=== PATIENT | male | born 1970 | race Asian ===

== ENCOUNTER 2016-10-08 09:08 | Emergency (ER) | payer OTHER ==
[2016-10-08 09:15] VITALS: BP 146/90
--- NOTE | 2016-10-08 09:30 | ED Physician Documentation ---
PD HPI LOWER EXT INJURY - Stated complaint Stated Complaint: LT LEG PX - Chief complaint Chief Complaint: Ext Problem - History obtained from History obtained from: Patient - History of Present Illness PD HPI LOW EXT INJURY LOCATION: Left, Lower leg Type of injury: Fall (slid into base while playing baseball and has abrasion lateral lower leg. injury 4 days ago, with redness and some scabbing. He has noted some swelling of lower leg and ankle below the injury now and is concerned. No purulence/drainage.) Where injury occurred: [place] - onset: How many days ago (4) Worsened by: Palpating Associated symptoms: No: Weakness, Numbness Review of Systems Constitutional: denies: Fever, Chills Neurologic: denies: Focal weakness, Numbness PD PAST MEDICAL HISTORY - Past Medical History Past Medical History: No : Kidney stones - Past Surgical History General: Cholecystectomy - Present Medications Home Medications: Ambulatory Orders Medication Instructions Recorded Confirmed Cephalexin [Keflex] 500 mg PO TID #20 capsule 10/08/16 - Allergies Allergies/Adverse Reactions: Allergies Allergy/AdvReac Type Severity Reaction Status Date / Time No Known Drug Allergies Allergy Verified 10/08/16 09:12 - Social History Does the pt smoke?: No Smoking Status: Never smoker Does the pt drink ETOH?: Yes Does the pt have substance abuse?: No - Immunizations Immunizations are current?: Yes PD ED PE NORMAL - Vitals Vital signs reviewed: Yes - General General: Alert and oriented X 3, No acute distress, Well developed/nourished - Derm Derm: Normal color, Warm and dry - Extremities Extremities: Other (left lateral lower leg with large superficial abrasion with some scabbing, no purulence. Mild surrounding redness demarcated well at edges. Some swelling of skin around the area and distal to it laterally lower leg and ankle. Faint bruising color. No calf tenderness. Bedside U/S showing spot check of veins with good flow and compressibility. ) - Neuro Neuro: No motor deficit, No sensory deficit Results - Vitals Vitals: Vital Signs - 24 hr 10/08/16 09:10 Temperature 36.5 C Heart Rate 86 Respiratory 18 Rate Blood Pressure 146/90 H O2 Saturation 99 Oxygen O2 Source Room air PD MEDICAL DECISION MAKING - ED course Complexity details: considered differential (the ankle swelling appears to be gravity effect of swelling from around the injury. No signs of DVT by exam. Not appearing infected at this point. ), d/w patient Departure - Departure Disposition: 01 Home, Self Care Clinical Impression: Swelling of lower limb Lower leg abrasion Qualifiers: Encounter type: initial encounter Laterality: left Qualified Code(s): S80.812A - Abrasion, left lower leg, initial encounter Condition: Stable Record reviewed to determine appropriate education?: Yes Instructions: ED Abrasion Follow-Up: Ruddy Peña MD [Primary Care Provider] - Prescriptions: Cephalexin [Keflex] 500 mg PO TID #20 capsule Comments: There is low suspicion for blood clots. The swelling is most likely a gravity effect from some of the swelling around the injury. Doubt early infection, but if it were to have increasing redness, streaks, purulence, then you would want to start the oral antibiotic. Otherwise continue to cleanse the abrasion and use light bit of ointment daily. For the muscle stiffness/soreness, try some Ibuprofen 400-600 mg or Naproxen 440 mg twice daily for the next 4-5 days. Gm wrap, elevate the lower leg as needed to help the swelling. Normal activity/ walking is okay. Discharge Date/Time: 10/08/16 10:05
== END 2016-10-08 10:05 | disposition home or self-care (01) ==
LOC: ED 09:08
DX: S80.812A Abrasion, left lower leg, initial encounter (principal); W22.8XXA Striking against or struck by other objects, initial encounter; Y93.64 Activity, baseball; Y92.320 Baseball field as the place of occurrence of the external cause; R22.42 Localized swelling, mass and lump, left lower limb
CPT/HCPCS: 99283

== ENCOUNTER 2017-11-25 03:18 | Emergency (ER) | payer OTHER ==
--- NOTE | 2017-11-25 03:29 | ED Physician Documentation ---
PD HPI BACK PAIN - Stated complaint Stated Complaint: LOWER BACK PAIN - Chief complaint Chief Complaint: Back Pain - History obtained from History obtained from: Patient - History of Present Illness Timing - onset: Other (episodic for few weeks, but became severe few hours ago) Timing - details: Abrupt onset, Intermittant, Waxing and waning, Still present in ED Pain level now: 8 Location: Lower, Left Quality: Pain Associated symptoms: No: Fever, Weakness, Numbness, Incontinent of urine, Unable to urinate, Hematuria, Incontinent of stool Improves with: Nothing Worsened by: Other (no exacerbating factors) Similar symptoms before: Diagnosis (similar to previous renal colic) Recently seen: Not recently seen Review of Systems Constitutional: denies: Fever Cardiac: reports: Reviewed and negative Respiratory: reports: Reviewed and negative GI: reports: Reviewed and negative. denies: Abdominal Pain, Nausea, Vomiting : denies: Dysuria, Frequency Musculoskeletal: reports: Back pain PD PAST MEDICAL HISTORY - Past Medical History Past Medical History: Yes Cardiovascular: High cholesterol : Kidney stones - Past Surgical History Past Surgical History: Yes General: Cholecystectomy - Present Medications Home Medications: Ambulatory Orders Medication Instructions Recorded Confirmed Tamsulosin [Flomax] 0.4 mg PO DAILY #10 capsule 11/25/17 oxyCODONE/ACET 5/325 [Percocet 5 1 - 2 each PO Q6H PRN #20 tablet 11/25/17 mg/325 mg] - Allergies Allergies/Adverse Reactions: Allergies Allergy/AdvReac Type Severity Reaction Status Date / Time No Known Drug Allergies Allergy Verified 11/25/17 03:24 - Social History Does the pt smoke?: No Smoking Status: Never smoker Does the pt drink ETOH?: Yes Does the pt have substance abuse?: No - Immunizations Immunizations are current?: Yes - POLST Patient has POLST: No PD ED PE NORMAL - Vitals Vital signs reviewed: Yes - General General: Alert and oriented X 3, Well developed/nourished, Other (pacing in room , appears to be in painful distress) - HEENT HEENT: Moist mucous membranes - Cardiac Cardiac: RRR, No murmur - Respiratory Respiratory: No respiratory distress, Clear bilaterally - Abdomen Abdomen: Soft, Non tender - Back Back: No CVA TTP - Derm Derm: No rash Results - Vitals Vitals: Oxygen O2 Source Room air - Labs Labs: Laboratory Tests 11/25/17 03:30 Urine Color YELLOW Urine Clarity CLEAR Urine pH 6.0 Ur Specific [place] 1.025 Urine Protein NEGATIVE Urine Glucose (UA) NEGATIVE Urine Ketones NEGATIVE Urine Occult Blood MODERATE H Urine Nitrite NEGATIVE Urine Bilirubin NEGATIVE Urine Urobilinogen 0.2 (NORMAL) Ur Leukocyte Esterase NEGATIVE Urine RBC 11-25 H Urine WBC 0-3 Ur Squamous Epith Cells RARE Squamous Urine Bacteria Rare Ur Microscopic Review INDICATED Urine Culture Comments NOT INDICATED - Rads (name of study) CT A/P Radiology: Prelim report reviewed, See rad report PD MEDICAL DECISION MAKING - ED course Complexity details: reviewed results, re-evaluated patient, considered differential, d/w patient ED course: on reevaluation after IV toradol and dilaudid, patient is resting comfortably and reports excellent pain relief. results of Cat discussed, dietary recommendations discussed, follow up and discharge plan all discussed at length. - Sepsis Event Vital Signs: Oxygen O2 Source Room air Departure - Departure Disposition: 01 Home, Self Care Clinical Impression: Renal colic on left side Condition: Good Instructions: ED Stone Renal W Colic Follow-Up: Ruddy Peña MD [Primary Care Provider] - Prescriptions: oxyCODONE/ACET 5/325 [Percocet 5 mg/325 mg] 1 - 2 each PO Q6H PRN #20 tablet PRN Reason: Pain Tamsulosin [Flomax] 0.4 mg PO DAILY #10 capsule Forms: Activity restrictions Discharge Date/Time: 11/25/17 05:37
[2017-11-25] MEDS ORDERED: HYDROmorphone 1 MG/ML CARPUJECT IM STA (03:37)
[2017-11-25] MEDS ORDERED: KETOROLAC 60 MG/2 ML VIAL IM STA (03:37)
[2017-11-25 03:39] LABS: BILIRUBIN,URINE NEGATIVE (NEGATIVE); CLARITY,URINE CLEAR (CLEAR); GLUCOSE, URINE (UA) NEGATIVE (NEGATIVE); KETONES,URINE (UA) NEGATIVE (NEGATIVE); LEUKOCYTE ESTERASE, URINE NEGATIVE (NEGATIVE); NITRITE,URINE NEGATIVE (NEGATIVE); OCCULT BLOOD,URINE MODERATE (NEGATIVE); PROTEIN,URINE NEGATIVE (NEGATIVE); UROBILINOGEN,URINE 0.2 (NORMAL) E.U./dL (NORMAL)
[2017-11-25 03:45] LABS: BACTERIA,URINE Rare /HPF (None Seen); SQUAMOUS EPITHELIAL CELL,UR RARE Squamous (<= Few)
--- NOTE | 2017-11-25 04:53 | CT Report ---
Procedure Date: 11/25/2017 Accession Number: [id number] / [id number] Procedure: CT - Abdomen/Pelvis W/O CPT Code: FULL RESULT: EXAM: CT ABDOMEN AND PELVIS (CT KUB) EXAM DATE: 11/25/2017 04:40 AM. CLINICAL HISTORY: Left flank pain. COMPARISONS: 06/04/2006. TECHNIQUE: Routine axial helical CT imaging was performed through the abdomen and pelvis without IV contrast. Reconstructions: Coronal and sagittal. In accordance with CT protocol optimization, one or more of the following dose reduction techniques were utilized for this exam: automated exposure control, adjustment of mA and/or KV based on patient size, or use of iterative reconstructive technique. FINDINGS: Lung Bases: Unremarkable. Right Kidney/Ureter: Nonobstructing calculi, measuring up to 6 mm in the lower pole. No hydronephrosis. Left Kidney/Ureter: Collecting system calculi, measuring up to 3 mm. Mild left hydronephrosis and hydroureter, with a 4 mm calculus in the distal left ureter, approximately 3 cm proximal to the left ureterovesicular junction. Other Solid Organs: Noncontrast images of the solid organs are grossly unremarkable. Gallbladder/Bile Ducts: Changes of cholecystectomy. Peritoneal Cavity: No free fluid, free air or paula adenopathy. Bowel is grossly unremarkable. Pelvic Organs: No bladder stones or wall thickening. Noncontrast images of the visualized pelvic organs are unremarkable. Vasculature: Unremarkable. Other: None. IMPRESSION: A 4 mm calculus in the distal left ureter, producing mild left hydronephrosis and proximal hydroureter. Bilateral upper tract calculi, measuring up to 3 mm on the left and 6 mm on the right. RADIA
[2017-11-25] MEDS ORDERED: oxyCODONE/ACET 5/325 Prepack 4 PO STA (05:24)
[2017-11-25] MEDS ORDERED: TAMSULOSIN 0.4 MG CAPSULE PO STA (05:24)
[2017-11-25 05:37] VITALS: BP 129/83
== END 2017-11-25 05:37 | disposition home or self-care (01) ==
LOC: ED 03:18
DX: N13.2 Hydronephrosis with renal and ureteral calculous obstruction (principal); Z87.442 Personal history of urinary calculi
CPT/HCPCS: 74176; 81001; 96372; 99283; A9270; J1170; 81003; 87086

== ENCOUNTER 2017-12-02 08:15 | Outpatient (CLI) | payer OTHER ==
[2017-12-02 12:36] LABS: BASOPHILS # (AUTO) 0.1 10^3/uL (0.0-0.1); BASOPHILS % (AUTO) 0.7 %; EOSINOPHILS # (AUTO) 0.6 10^3/uL (0.0-0.7); EOSINOPHILS % (AUTO) 6.6 %; LYMPHOCYTES # (AUTO) 2.3 10^3/uL (1.5-3.5); LYMPHOCYTES % (AUTO) 24.4 %; MEAN CORPUSCULAR VOLUME 88.1 fL (80.0-94.0); MEAN PLATELET VOLUME 7.4 fL (7.4-11.4); MONOCYTES # (AUTO) 0.7 10^3/uL (0.0-1.0); MONOCYTES % (AUTO) 7.5 %; NEUTROPHILS # (AUTO) 5.6 10^3/uL (1.5-6.6); NEUTROPHILS % (AUTO) 60.8 %; PLT - PLATELET COUNT 267 10^3/uL (130-450); RED BLOOD COUNT 5.35 10^6/uL (4.70-6.10); RED CELL DISTRIBUTION WIDTH 12.8 % (12.0-15.0); WHITE BLOOD COUNT 9.2 x10^3/uL (4.8-10.8)
[2017-12-02 13:10] LABS: HB2 TOTAL 17.9 g/dL; HEMOGLOBIN A1C 0.68 g/dL; HEMOGLOBIN A1C % 5.6 % (4.6-6.2)
[2017-12-02 13:34] LABS: ALBUMIN 4.1 g/dL (3.2-5.5); ALBUMIN/GLOBULIN RATIO 1.2 (1.0-2.2); ALKALINE PHOSPHATASE 66 IU/L (42-121); ALT ALANINE AMINOTRANSFERASE 35 IU/L (10-60); AST ASPARTATE AMINOTRANSFERASE 28 IU/L (10-42); BILIRUBIN,TOTAL 0.9 mg/dL (0.2-1.0); BUN - BLOOD UREA NITROGEN 19 mg/dL (6-20); CALCIUM 9.1 mg/dL (8.5-10.3); CARBON DIOXIDE - CO2 26 mmol/L (21-32); CHLORIDE 105 mmol/L (101-111); CHOL/HDL RATIO 6.7 (<5.0); CHOLESTEROL 282 mg/dL; GFR - MDRD 80 (>89); GLUCOSE 146 mg/dL (70-100); HDL CHOLESTEROL 42 mg/dL; LDL CHOLESTEROL,CALCULATED 164 mg/dL; LDL/HDL RATIO 3.9 (<3.6); SODIUM 139 mmol/L (135-145); TOTAL PROTEIN 7.5 g/dL (6.7-8.2); VLDL CHOLESTEROL 76 mg/dL
== END 2017-12-02 08:16 | disposition home or self-care (01) ==
LOC: LAB.WCP 08:15
PROVIDERS: ATTEND Family Medicine
DX: R94.5 Abnormal results of liver function studies (principal); E74.39 Other disorders of intestinal carbohydrate absorption; N20.0 Calculus of kidney; E78.5 Hyperlipidemia, unspecified; Z00.00 Encounter for general adult medical examination without abnormal findings
CPT/HCPCS: 36415; 80053; 80061; 83036; 83721; 84443; 85025

== ENCOUNTER 2018-02-04 18:12 | Outpatient (CLI) | payer OTHER ==
--- NOTE | 2018-02-05 16:17 | Ultrasound Report ---
Reason: NEPHROLITHIASIS Procedure Date: 02/04/2018 Accession Number: [id number] / [id number] Procedure: US - Retroperitoneal CPT Code: FULL RESULT: EXAM: RENAL ULTRASOUND EXAM DATE: 02/04/2018 06:47 PM. CLINICAL HISTORY: NEPHROLITHIASIS. COMPARISON: ABDOMEN/PELVIS W/O 11/25/2017 4:33 AM. TECHNIQUE: Real-time scanning was performed with static images obtained. FINDINGS: Right Kidney: 11.1 x 6.4 x 5.2 cm. There is a lower pole stone measuring 6 mm in diameter. No hydronephrosis or mass. Left Kidney: 12.3 x 6.1 x 5.9 cm. Normal echotexture with no stones, contour-deforming masses, or hydronephrosis. Bladder: Bilateral jets seen. The prevoid bladder volume was 104 cc. The postvoid bladder volume was 9 cc. Other: None. IMPRESSION: 1. No hydronephrosis bilaterally. 2. Nonobstructing right kidney stone. RADIA
== END 2018-02-04 18:13 | disposition home or self-care (01) ==
LOC: DI 18:12
PROVIDERS: ATTEND Urology
DX: N20.0 Calculus of kidney (principal)
CPT/HCPCS: 76770

== ENCOUNTER 2018-03-09 07:22 | Outpatient (CLI) | payer OTHER | END 2018-03-09 07:23 | disposition home or self-care (01) | LOC: LAB.WCP 07:22 | PROVIDERS: ATTEND Family Medicine | DX: R73.01 Impaired fasting glucose (principal); E78.5 Hyperlipidemia, unspecified; N20.0 Calculus of kidney | CPT/HCPCS: 36415; 80053; 80061; 83721; 84443; 84550 ==

== ENCOUNTER 2018-04-04 07:28 | Outpatient (CLI) | payer OTHER ==
[2018-04-04 13:08] LABS: ALBUMIN/GLOBULIN RATIO 1.3 (1.0-2.2); ALKALINE PHOSPHATASE 73 IU/L (42-121); ALT ALANINE AMINOTRANSFERASE 69 IU/L (10-60); AST ASPARTATE AMINOTRANSFERASE 41 IU/L (10-42); BILIRUBIN,TOTAL 0.5 mg/dL (0.2-1.0); BUN - BLOOD UREA NITROGEN 13 mg/dL (6-20); CALCIUM 8.4 mg/dL (8.5-10.3); CARBON DIOXIDE - CO2 24 mmol/L (21-32); CHLORIDE 107 mmol/L (101-111); CHOL/HDL RATIO 5.7 (<5.0); CHOLESTEROL 194 mg/dL; CREATININE 0.9 mg/dL (0.6-1.2); GFR - MDRD 90 (>89); GLUCOSE 139 mg/dL (70-100); HDL CHOLESTEROL 34 mg/dL; SODIUM 135 mmol/L (135-145); TOTAL PROTEIN 7.2 g/dL (6.7-8.2); URIC ACID 3.9 mg/dL (2.6-7.2)
[2018-04-04 13:37] LABS: LDL CHOLESTEROL,DIRECT 112 mg/dL; LDLD/HDL RATIO 3.3 (<3.6)
== END 2018-04-04 23:59 | disposition home or self-care (01) ==
LOC: LAB.WCP 07:28
PROVIDERS: ATTEND Family Medicine
DX: E78.5 Hyperlipidemia, unspecified (principal); R73.01 Impaired fasting glucose; N20.0 Calculus of kidney
CPT/HCPCS: 36415; 80053; 80061; 83721; 84443; 84550

== ENCOUNTER 2018-04-25 09:42 | Outpatient (CLI) | payer OTHER | END 2018-04-25 09:43 | disposition home or self-care (01) | LOC: NS 09:42 | PROVIDERS: ATTEND Family Medicine | DX: Z71.3 Dietary counseling and surveillance (principal); K76.0 Fatty (change of) liver, not elsewhere classified; E11.9 Type 2 diabetes mellitus without complications ==

== ENCOUNTER 2018-05-27 08:01 | Outpatient (CLI) | payer OTHER ==
--- NOTE | 2018-05-27 11:05 | CT Report ---
Reason: KIDNEY STONE Procedure Date: 05/27/2018 Accession Number: [id number] / [id number] Procedure: CT - Pelvis W/O CPT Code: FULL RESULT: EXAM: CT PELVIS WITHOUT IV CONTRAST EXAM DATE: 05/27/2018 07:56 AM. CLINICAL HISTORY: Kidney stone. COMPARISONS: CT abdomen/pelvis without contrast 11/25/2017. TECHNIQUE: Routine helical CT imaging was performed through the pelvis. IV contrast: None. Enteric contrast: No. Reconstructions: Coronal and sagittal. In accordance with CT protocol optimization, one or more of the following dose reduction techniques were utilized for this exam: automated exposure control, adjustment of mA and/or KV based on patient size, or use of iterative reconstructive technique. FINDINGS: Visualized Abdominal Organs: Normal. Peritoneal Cavity/Bowel: Sigmoid diverticulosis without diverticulitis. No free fluid, free air or adenopathy. No masses or acute inflammatory process. Pelvic Organs: A 6 mm x 4 mm calculus along the distal left ureter approximately 4 cm proximal to the ureterovesical junction is noted. This location approximately corresponds to the site of previous calculus in November 2017, which was smaller. The bladder, rectum, and visualized pelvic organs are otherwise within normal limits. Vasculature: No aneurysms or other significant abnormality. Bones: No significant abnormality. Other: None. IMPRESSION: 6 mm distal left ureteral calculus. RADIA
== END 2018-05-27 08:02 | disposition home or self-care (01) ==
LOC: DI 08:01
PROVIDERS: ATTEND Urology
DX: N20.1 Calculus of ureter (principal)
CPT/HCPCS: 72192

== ENCOUNTER 2018-08-16 07:17 | Outpatient (CLI) | payer OTHER ==
--- NOTE | 2018-08-16 11:22 | Ultrasound Report ---
Reason: URETERAL CALCULUS,LEFT Procedure Date: 08/16/2018 Accession Number: [id number] / [id number] Procedure: US - Retroperitoneal CPT Code: FULL RESULT: EXAM: RENAL ULTRASOUND EXAM DATE: 08/16/2018 07:30 AM. CLINICAL HISTORY: Ureteral calculus, left. COMPARISON: RETROPERITONEAL 02/04/2018 6:20 PM. TECHNIQUE: Real-time scanning was performed with static images obtained. FINDINGS: Right Kidney: 11.4 cm. There is a lower pole 0.7 x 0.5 x 0.6 cm nonobstructing calculus. Normal echotexture, no contour-deforming masses, or hydronephrosis. Left Kidney: 11.3 cm. Normal echotexture with no stones, contour-deforming masses, or hydronephrosis. Bladder: Bilateral jets seen. The prevoid bladder volume was 156 cc. The postvoid bladder volume was 12 cc. Other: None. IMPRESSION: Nonobstructing right renal calculus as described. RADIA
== END 2018-08-16 07:18 | disposition home or self-care (01) ==
LOC: DI 07:17
PROVIDERS: ATTEND Urology
DX: N20.0 Calculus of kidney (principal)
CPT/HCPCS: 76770

== ENCOUNTER 2018-08-24 07:22 | Outpatient (CLI) | payer OTHER ==
[2018-08-24 14:40] LABS: ALBUMIN/GLOBULIN RATIO 1.3 (1.0-2.2); BILIRUBIN,TOTAL 0.8 mg/dL (0.2-1.0); CREATININE 0.9 mg/dL (0.6-1.2); TOTAL PROTEIN 7.2 g/dL (6.7-8.2); URIC ACID 4.9 mg/dL (2.6-7.2)
[2018-08-24 14:56] LABS: HB2 TOTAL 16.8 g/dL; HEMOGLOBIN A1C 0.64 g/dL; HEMOGLOBIN A1C % 5.6 % (4.6-6.2)
== END 2018-08-24 07:23 | disposition home or self-care (01) ==
LOC: LAB.WCP 07:22
PROVIDERS: ATTEND Family Medicine
DX: N20.9 Urinary calculus, unspecified (principal); R73.01 Impaired fasting glucose
CPT/HCPCS: 36415; 80053; 83036; 84443; 84550

== ENCOUNTER 2019-03-20 08:00 | Outpatient (CLI) | payer OTHER ==
[2019-03-20 15:52] LABS: ALBUMIN 4.4 g/dL (3.2-5.5); ALBUMIN/GLOBULIN RATIO 1.5 (1.0-2.2); ALKALINE PHOSPHATASE 71 IU/L (42-121); ALT ALANINE AMINOTRANSFERASE 42 IU/L (10-60); AST ASPARTATE AMINOTRANSFERASE 26 IU/L (10-42); BILIRUBIN,TOTAL 0.6 mg/dL (0.2-1.0); BUN - BLOOD UREA NITROGEN 13 mg/dL (6-20); CALCIUM 8.4 mg/dL (8.5-10.3); CARBON DIOXIDE - CO2 23 mmol/L (21-32); CHLORIDE 105 mmol/L (101-111); CHOL/HDL RATIO 3.5 (<5.0); CHOLESTEROL 184 mg/dL; CREATININE 0.9 mg/dL (0.6-1.2); GFR - MDRD 90 (>89); GLUCOSE 116 mg/dL (70-100); HDL CHOLESTEROL 52 mg/dL; LDL CHOLESTEROL,CALCULATED 95 mg/dL; LDL/HDL RATIO 1.8 (<3.6); SODIUM 138 mmol/L (135-145); TOTAL PROTEIN 7.4 g/dL (6.7-8.2); VLDL CHOLESTEROL 37 mg/dL
[2019-03-20 16:05] LABS: HB2 TOTAL 16.2 g/dL; HEMOGLOBIN A1C 0.59 g/dL; HEMOGLOBIN A1C % 5.5 % (4.6-6.2)
== END 2019-03-20 23:59 | disposition home or self-care (01) ==
LOC: LAB.WCP 08:00
PROVIDERS: ATTEND Family Medicine
DX: E11.9 Type 2 diabetes mellitus without complications (principal); E78.5 Hyperlipidemia, unspecified; N20.0 Calculus of kidney; K76.0 Fatty (change of) liver, not elsewhere classified
CPT/HCPCS: 36415; 80053; 80061; 82043; 83036; 83721; 84443

== ENCOUNTER 2020-03-26 08:00 | Outpatient (CLI) | payer OTHER ==
[2020-03-26 12:40] LABS: BASOPHILS # (AUTO) 0.1 10^3/uL (0.0-0.1); BASOPHILS % (AUTO) 0.6 %; EOSINOPHILS # (AUTO) 0.7 10^3/uL (0.0-0.7); EOSINOPHILS % (AUTO) 7.8 %; HGB - HEMOGLOBIN 16.6 g/dL (14.0-18.0); LYMPHOCYTES # (AUTO) 2.3 10^3/uL (1.5-3.5); LYMPHOCYTES % (AUTO) 26.9 %; MEAN CORPUSCULAR HEMOGLOBIN 30.3 pg (27.0-31.0); MEAN CORPUSCULAR HGB CONC 32.9 g/dL (32.0-36.0); MONOCYTES # (AUTO) 0.7 10^3/uL (0.0-1.0); MONOCYTES % (AUTO) 8.5 %; NEUTROPHILS # (AUTO) 4.8 10^3/uL (1.5-6.6); NEUTROPHILS % (AUTO) 55.5 %; PLT - PLATELET COUNT 244 10^3/uL (130-450); RED BLOOD COUNT 5.48 10^6/uL (4.70-6.10); RED CELL DISTRIBUTION WIDTH 13.1 % (12.0-15.0); WHITE BLOOD COUNT 8.6 x10^3/uL (4.8-10.8)
[2020-03-26 13:21] LABS: ALBUMIN 4.1 g/dL (3.2-5.5); ALBUMIN/GLOBULIN RATIO 1.2 (1.0-2.2); ALKALINE PHOSPHATASE 45 IU/L (42-121); ALT ALANINE AMINOTRANSFERASE 37 IU/L (10-60); AST ASPARTATE AMINOTRANSFERASE 21 IU/L (10-42); BILIRUBIN,TOTAL 0.9 mg/dL (0.2-1.0); BUN - BLOOD UREA NITROGEN 20 mg/dL (6-20); CARBON DIOXIDE - CO2 24 mmol/L (21-32); CHLORIDE 104 mmol/L (101-111); CHOL/HDL RATIO 4.4 (<5.0); CHOLESTEROL 223 mg/dL; CREATININE 0.8 mg/dL (0.6-1.2); GLUCOSE 122 mg/dL (70-100); HDL CHOLESTEROL 51 mg/dL; LDL CHOLESTEROL,CALCULATED 141 mg/dL; LDL/HDL RATIO 2.8 (<3.6); SODIUM 137 mmol/L (135-145); TOTAL PROTEIN 7.4 g/dL (6.7-8.2); VLDL CHOLESTEROL 31 mg/dL
[2020-03-26 13:34] LABS: CREATININE,URINE 211.3 mg/dL; MICROALBUM/CREATININE RATIO,UR 4.7 ug/mg (<30.0)
[2020-03-26 14:04] LABS: HEMOGLOBIN A1c% 5.5 % (4.27-6.07)
== END 2020-03-26 23:59 | disposition home or self-care (01) ==
LOC: LAB.WCP 08:00
PROVIDERS: ATTEND Internal Medicine
DX: E11.9 Type 2 diabetes mellitus without complications (principal); E78.5 Hyperlipidemia, unspecified; K76.0 Fatty (change of) liver, not elsewhere classified; Z12.5 Encounter for screening for malignant neoplasm of prostate
CPT/HCPCS: 36415; 80053; 80061; 82043; 82570; 83036; 83721; 84153; 84443; 85025

== ENCOUNTER 2020-04-29 06:50 | Day surgery (SDC) | payer OTHER ==
[2020-04-29] MEDS ORDERED: LACTATED RINGERS 1,000 ML IV ONE ×2 (07:20→08:45)
[2020-04-29] MEDS ORDERED: fentaNYL 250 MCG/5 ML VIAL ONE (08:10)
[2020-04-29] MEDS ORDERED: MIDAZOLAM 2 MG/2 ML VIAL ONE (08:11)
[2020-04-29 09:08] VITALS: BP 81/51
== END 2020-04-29 06:51 | disposition home or self-care (01) ==
LOC: SDS 06:50
PROVIDERS: ATTEND Internal Medicine Gastroenterology
PROC: 0DBP8ZZ Excision of Rectum, Via Natural or Artificial Opening Endoscopic (ICD-10-PCS; principal; 2020-04-29 08:00)
DX: Z12.11 Encounter for screening for malignant neoplasm of colon (principal); K62.1 Rectal polyp; K57.30 Diverticulosis of large intestine without perforation or abscess without bleeding; E78.5 Hyperlipidemia, unspecified; K76.0 Fatty (change of) liver, not elsewhere classified
CPT/HCPCS: 45380; J3010; J7120; 88305

== ENCOUNTER 2020-09-30 08:00 | Outpatient (CLI) | payer OTHER ==
--- NOTE | 2020-09-30 10:16 | XRAY Report ---
PROCEDURE: Chest 2 View X-Ray INDICATIONS: FEVER, UNSPECIFIED TECHNIQUE: 2 view(s) of the chest. COMPARISON: Lung bases on CT abdomen and pelvis 11/25/2017. FINDINGS: Surgical changes and devices: Cholecystectomy clips. Lungs and pleura: No pleural effusions or pneumothorax. Left retrocardiac airspace opacity. Mediastinum: Fullness in the right hilar region. Heart size is normal. Bones and chest wall: No suspicious bony abnormalities. Soft tissues appear unremarkable. IMPRESSION: Left retrocardiac airspace opacity is concerning for pneumonia. Fullness in the right hilar region. This could be due to adenopathy. Consider CT scan of the chest for further evaluation. Recommend follow-up to resolution. Reviewed by: Angel Kim MD on 09/30/2020 10:15 AM PDT Approved by: Angel Kim MD on 09/30/2020 10:15 AM PDT Station ID: [id number]
== END 2020-09-30 23:59 | disposition home or self-care (01) ==
LOC: DI.N 08:00
PROVIDERS: ATTEND Physician Assistant Medical
DX: R91.8 Other nonspecific abnormal finding of lung field (principal); R50.9 Fever, unspecified; Z20.822 Contact with and (suspected) exposure to COVID-19
CPT/HCPCS: 87275; 87276

== ENCOUNTER 2020-09-30 08:00 | Outpatient (CLI) | payer OTHER | END 2020-09-30 23:59 | disposition home or self-care (01) | LOC: LAB.N 08:00 | PROVIDERS: ATTEND Physician Assistant Medical | DX: R50.9 Fever, unspecified (principal); Z20.822 Contact with and (suspected) exposure to COVID-19 | CPT/HCPCS: 87275; 87276 ==

== ENCOUNTER 2020-10-02 09:17 | Emergency (ER) | payer OTHER ==
[2020-10-02] MEDS ORDERED: SODIUM CHLORIDE 0.9% 1,000 ML IV STA (09:41)
[2020-10-02] MEDS ORDERED: MORPHINE 2 MG/ML CARPUJECT IVP STA (09:41)
--- NOTE | 2020-10-02 09:44 | ED Physician Documentation ---
History of Present Illness - Stated complaint Stated Complaint: FEVER/BODY ACHES - Chief complaint Chief Complaint: General - History obtained from History obtained from: Patient - Additonal information Additional information: Generally healthy 50-year-old gentleman had his [place] Covid shot in early July. He has been sick for 5 days with fever and body aches. He was seen in urgent care on Wednesday, 2 days ago. Covid and flu testing was negative at that time. He had a chest x-ray showing potential retrocardiac pneumonia and was started on levofloxacin. He has had 2 doses of that. Despite that he feels worse. Continuing to have fevers up to 101 this morning. Feels miserable with myalgias. No headache. He is also developed upper abdominal pain described as a burning. Nonradiating. He feels like it might be related to ibuprofen use that he has been taking for his aches and fevers. He has a remote history of ulcer disease. Review of Systems Ten Systems: 10 systems reviewed and negative Constitutional: reports: Fever, Chills, Myalgias, Fatigue Ears: denies: Ear pain, Drainage/discharge Nose: denies: Rhinorrhea / runny nose, Congestion Throat: denies: Sore throat Cardiac: denies: Chest pain / pressure, Palpitations Respiratory: reports: Cough. denies: Dyspnea PD PAST MEDICAL HISTORY - Past Medical History Cardiovascular: High cholesterol : Kidney stones - Past Surgical History Past Surgical History: Yes General: Cholecystectomy - Present Medications Home Medications: Ambulatory Orders Medication Instructions Recorded Confirmed Lovastatin [Altoprev] 20 mg PO 04/25/20 allopurinoL [Zyloprim] 300 mg PO 04/25/20 hydrOXYzine PAMOATE [Vistaril] 25 mg PO 04/25/20 Amoxicillin 2 tab PO TID 7 Days #42 cap 10/02/20 Doxycycline Hyclate 100 mg PO BID #14 tab 10/02/20 Oxycodone HCl [Roxicodone] 5 mg PO Q6H PRN #15 tab 10/02/20 - Allergies Allergies/Adverse Reactions: Allergies Allergy/AdvReac Type Severity Reaction Status Date / Time No Known Drug Allergies Allergy Verified 10/02/20 09:38 - Social History Does the pt smoke?: No Smoking Status: Never smoker Does the pt drink ETOH?: Yes Does the pt have substance abuse?: No - Immunizations Immunizations are current?: Yes - POLST Patient has POLST: No PD ED PE NORMAL - Vitals Vital signs reviewed: Yes - General General: Alert and oriented X 3, No acute distress - HEENT HEENT: PERRL, EOMI - Neck Neck: Supple, no meningeal sign, No bony TTP - Cardiac Cardiac: RRR, No murmur - Respiratory Respiratory: Other (Crackles and diminished at the left base, nonlabored) - Abdomen Abdomen: Normal bowel sounds, Other (Moderate upper abdominal tenderness without surgical signs) - Back Back: No CVA TTP, No spinal TTP - Derm Derm: Normal color, Warm and dry - Extremities Extremities: No edema, No calf tenderness / cord - Neuro Neuro: Alert and oriented X 3, Normal speech Results - Vitals Vitals: Vital Signs - 24 hr 10/02/20 09:28 Temperature 37.1 C Heart Rate 95 Respiratory 20 Rate Blood Pressure 150/91 H O2 Saturation 92 Oxygen O2 Source Room air - Labs Labs: Laboratory Tests 10/02/20 10/02/20 10/02/20 10:01 10:01 10:01 WBC 11.8 H RBC 5.37 Hgb 16.3 Hct 48.6 MCV 90.5 MCH 30.4 MCHC 33.5 RDW 13.0 Plt Count 230 MPV 8.9 Neut # (Auto) 9.7 H Lymph # (Auto) 0.8 L [place] # (Auto) 1.1 H Eos # (Auto) 0.1 Baso # (Auto) 0.0 Absolute Nucleated RBC 0.00 Nucleated RBC % 0.0 Sodium 137 Potassium 3.7 Chloride 100 L Carbon Dioxide 23 Anion Gap 14.0 H BUN 13 Creatinine 1.0 Estimated GFR (MDRD) 79 L Glucose 141 H Lactic Acid 1.2 Calcium 10.0 Total Bilirubin 1.1 H AST 138 H ALT 199 H Alkaline Phosphatase 183 H Total Protein 8.1 Albumin 3.7 Globulin 4.3 H Albumin/Globulin Ratio 0.8 L PD MEDICAL DECISION MAKING - ED course ED course: 50-year-old gentleman presents with continued fevers and shortness of breath. Seen 2 days ago and diagnosed with retrocardiac pneumonia, fevers continue. He appears well, vital signs are reassuring. White count only modestly elevated. Does have elevated liver enzymes. This may be related to levofloxacin which is known to do this. Advised cessation of levofloxacin and he will start amoxicillin and doxycycline combination therapy instead. He was feeling much better after some pain medication here. Also IV fluids. Given the abdominal pain and previous CT read CT of the chest and abdomen were done with the only finding being the left lower lobe pneumonia. I am prescribing a short course of short-acting opioid pain medication for this patient. I have reviewed the patients CLERICAL MANAGER and no concerning findings were noted. I have discussed that the opioids are for short term therapy only, and will not be refilled from the ED. Departure - Departure Disposition: 01 Home, Self Care Clinical Impression: Pneumonia, Hepatotoxicity, Abdominal pain Condition: Good Record reviewed to determine appropriate education?: Yes Instructions: ED Pneumonia Adult Prescriptions: Amoxicillin 2 tab PO TID 7 Days #42 cap Doxycycline Hyclate 100 mg PO BID #14 tab Oxycodone HCl [Roxicodone] 5 mg PO Q6H PRN #15 tab PRN Reason: Pain Comments: Prescriptions were sent electronically to [facility] in [place]. Return if worsening. Follow-up with your doctor in a week, they may want to order repeat x-rays to make sure the pneumonia has completely resolved. Avoid alcohol as discussed since your liver is inflamed but suspect that is from the levofloxacin. As such please stop the levofloxacin, we are prescribing alternative and oral antibiotics anyway. Blood cultures are pending, we will call you if positive. I am prescribing a short course of narcotic pain medication for you. These are potentially dangerous and addictive medications that should be used carefully. These medications may constipate you. Take an hxkd-ldj-mgxlwze stool softener (docusate) twice daily with plenty of water while taking these medications. If you go 24 hours without a bowel movement, take ykfa-axv-ggoynkt miralax, per package instructions. Do not drink or drive while taking these medications. If you received narcotic or sedating medications while in the emergency department, do not drive for 24 hours. Store this medication in a safe, secure place and out of reach of children. It is a violation of federal law to give or sell this medication to another person or to use in a manner other than prescribed. The ED will not refill narcotic prescriptions, including prescriptions lost or stolen. To dispose of unwanted medications: 1. [facility] at [address] in [place] has a medication drop box. They accept prescription medications (in pill form) Wednesday through Wednesday 9:00 a.m. to 5:00 p.m. 2. The [facility] [employer] accepts prescription medications (in pill form only) for disposal year round. Call for more information. 3. Contact the [facility] for the next [facility] sponsored prescription drug collection event. , [phone], or [phone]; Note that many narcotic pain relievers also contain Tylenol/acetaminophen. Please ensure that your total dose of acetaminophen from all sources does not exceed 3 g (3000 mg) per day.
[2020-10-02 10:10] LABS: BASOPHILS % (AUTO) 0.2 %; EOSINOPHILS # (AUTO) 0.1 10^3/uL (0.0-0.7); EOSINOPHILS % (AUTO) 0.9 %; HCT - HEMATOCRIT 48.6 % (42.0-52.0); HGB - HEMOGLOBIN 16.3 g/dL (14.0-18.0); LYMPHOCYTES # (AUTO) 0.8 10^3/uL (1.5-3.5); LYMPHOCYTES % (AUTO) 6.9 %; MEAN CORPUSCULAR HEMOGLOBIN 30.4 pg (27.0-31.0); MEAN CORPUSCULAR HGB CONC 33.5 g/dL (32.0-36.0); MEAN CORPUSCULAR VOLUME 90.5 fL (80.0-94.0); MEAN PLATELET VOLUME 8.9 fL (7.4-11.4); MONOCYTES # (AUTO) 1.1 10^3/uL (0.0-1.0); MONOCYTES % (AUTO) 9.2 %; NEUTROPHILS # (AUTO) 9.7 10^3/uL (1.5-6.6); NEUTROPHILS % (AUTO) 82.5 %; PLT - PLATELET COUNT 230 10^3/uL (130-450); RED BLOOD COUNT 5.37 10^6/uL (4.70-6.10); WHITE BLOOD COUNT 11.8 x10^3/uL (4.8-10.8)
[2020-10-02 10:20] LABS: ALBUMIN 3.7 g/dL (3.2-5.5); ALBUMIN/GLOBULIN RATIO 0.8 (1.0-2.2); BILIRUBIN,TOTAL 1.1 mg/dL (0.2-1.0); POTASSIUM 3.7 mmol/L (3.5-5.0); TOTAL PROTEIN 8.1 g/dL (6.7-8.2)
[2020-10-02] MEDS ORDERED: IOVERSOL 320 100 ML VIAL IVP ONE ×2 (10:27→11:48)
--- NOTE | 2020-10-02 11:05 | CT Report ---
PROCEDURE: CHEST W INDICATIONS: Fever, cough CONTRAST: IV CONTRAST: Optiray 320 ml: 100 PO CONTRAST: *NO PO CONTRAST TECHNIQUE: After the administration of intravenous contrast, 5 mm thick sections acquired from the pulmonary api penny to the posterior costophrenic angles. 7 mm thick coronal MIP reformats were acquired. For radia tion dose reduction, the following was used: automated exposure control, adjustment of mA and/or kV according to patient size. COMPARISON: None. FINDINGS: Image quality: Excellent. Lungs and pleura: There is consolidation with air bronchograms and multiple segments of the left lowe r lobe posteriorly and inferiorly. Lungs are otherwise clear. No pleural effusion. Mediastinum: Normal heart size. No pericardial effusion. No threshold enlarged mediastinal or hilar l ymph node. Thoracic aorta and main pulmonary trunk are normal in caliber.. Bones and chest wall: No suspicious lytic or blastic osseous lesion. Normal thoracic vertebral body h eight and alignment. Abdomen: No acute finding in the included upper abdomen. Nonobstructing right renal calculus measurin g 3 mm in the upper pole. IMPRESSION: Consolidation with air bronchograms in the left lower lobe, consistent with pneumonia. Follow-up to r adiographic and clinical resolution is recommended to help exclude an underlying neoplasm. Reviewed by: Harris Guerrero MD on 10/02/2020 11:03 AM PDT Approved by: Harris Guerrero MD on 10/02/2020 11:03 AM PDT Station ID: [id number]
--- NOTE | 2020-10-02 11:11 | CT Report ---
PROCEDURE: Abdomen/Pelvis W INDICATIONS: Abdominal pain TECHNIQUE: After the administration of intravenous contrast, 5 mm thick sections acquired from the diaphragms to the symphysis. 5 mm thick coronal and sagittal reformats were acquired. For radiation dose reducti on, the following was used: automated exposure control, adjustment of mA and/or kV according to melinda ent size. COMPARISON: FINDINGS: Image quality: Excellent. ABDOMEN: Lung bases: Left lower lobe consolidation with air bronchograms. Solid organs: No acute finding or mass lesion of the liver, spleen, adrenal glands, kidneys, or pancr eas. Status post cholecystectomy. Nonobstructing calculi in the right kidney. Peritoneum and bowel: No abnormally dilated or thickened bowel. No pericolonic or mesenteric inflamma tory changes. Normal nondilated appendix. Sigmoid diverticulosis without findings of diverticulitis. Nodes and vessels: No retroperitoneal or mesenteric adenopathy by size criteria. Aorta and inferior vena cava are normal in size. PELVIS: Genitourinary: Bladder wall thickness is normal. Miscellaneous: No inguinal hernias or adenopathy. Bones: No suspicious bony lesions. No vertebral body compression fractures. IMPRESSION: Left lower lobe pneumonia. Reviewed by: Harris Guerrero MD on 10/02/2020 11:10 AM PDT Approved by: Harris Guerrero MD on 10/02/2020 11:10 AM PDT Station ID: [id number]
[2020-10-02 11:33] VITALS: BP 138/83
[2020-10-02 12:07] LABS: B. PARAPERTUSSIS- RESP PCR PAN NOT DETECTED; B. PERTUSSIS- RESP PCR PANEL NOT DETECTED; C. PNEUMONIAE- RESP PCR PANEL NOT DETECTED; CORONAVIRUS 229E-RESP PCR NOT DETECTED; CORONAVIRUS HKU1-RESP PCR NOT DETECTED; CORONAVIRUS NL63-RESP PCR NOT DETECTED; CORONAVIRUS OC43-RESP PCR NOT DETECTED; HUMAN METAPNEUMOVIRUS NOT DETECTED; INFLUENZA A- RESP PCR PANEL NOT DETECTED; INFLUENZA B - RESP PCR PANEL NOT DETECTED; M. PNEUMONIAE- RESP PCR PANEL NOT DETECTED; PARAINFLUENZA VIRUS 1 NOT DETECTED; PARAINFLUENZA VIRUS 2 NOT DETECTED; PARAINFLUENZA VIRUS 3 NOT DETECTED; PARAINFLUENZA VIRUS 4 NOT DETECTED; RHINOVIRUS/ENTEROVIRUS NOT DETECTED; RSV- RESP PCR PANEL NOT DETECTED; SARS-CoV-2 -RESP PCR PANEL NOT DETECTED
== END 2020-10-02 12:01 | disposition home or self-care (01) ==
LOC: ED 09:17
DX: J18.9 Pneumonia, unspecified organism (principal); K75.9 Inflammatory liver disease, unspecified; R10.10 Upper abdominal pain, unspecified; Z87.11 Personal history of peptic ulcer disease; Z20.822 Contact with and (suspected) exposure to COVID-19
CPT/HCPCS: 0202U; 36415; 71260; 74177; 80053; 83605; 85025; 87040; 96374; 99284; Q9967

== ENCOUNTER 2020-10-21 12:09 | Outpatient (CLI) | payer OTHER ==
--- NOTE | 2020-10-21 13:46 | XRAY Report ---
PROCEDURE: Femur 2V LT INDICATIONS: L HIP AND GREATER TROCHANTER PX TECHNIQUE: 4 views of the femur were acquired. COMPARISON: None. FINDINGS: Bones: No fractures or dislocations. No suspicious bony lesions. Soft tissues: No suspicious soft tissue calcifications or masses. IMPRESSION: No trauma found. Source of current pain is not found. Dedicated hip plain films may be warranted for best visualization of that portion of the proximal femur. Reviewed by: Demond Winn MD on 10/21/2020 1:45 PM PDT Approved by: Demond Winn MD on 10/21/2020 1:45 PM PDT Station ID: [id number]
== END 2020-10-21 12:10 | disposition home or self-care (01) ==
LOC: DI.N 12:09
PROVIDERS: ATTEND Family Medicine
DX: M25.552 Pain in left hip (principal)

== ENCOUNTER 2020-11-08 07:47 | Outpatient (CLI) | payer OTHER ==
[2020-11-08 12:31] LABS: ALBUMIN/GLOBULIN RATIO 1.4 (1.0-2.2); BILIRUBIN,TOTAL 0.4 mg/dL (0.2-1.0); CALCIUM 8.7 mg/dL (8.5-10.3); CREATININE 0.8 mg/dL (0.6-1.2); TOTAL PROTEIN 6.8 g/dL (6.7-8.2)
== END 2020-11-08 07:48 | disposition home or self-care (01) ==
LOC: LAB.N 07:47
PROVIDERS: ATTEND Internal Medicine
DX: R94.5 Abnormal results of liver function studies (principal)
CPT/HCPCS: 36415; 80053

== ENCOUNTER 2020-11-08 07:53 | Outpatient (CLI) | payer OTHER ==
--- NOTE | 2020-11-08 08:44 | XRAY Report ---
PROCEDURE: Chest 2 View X-Ray INDICATIONS: Pneumonia TECHNIQUE: 2 view(s) of the chest. COMPARISON: 10/02/2020 CT chest FINDINGS: Surgical changes and devices: None. Lungs and pleura: No pleural effusions or pneumothorax. Previously seen left retrocardiac consolidat ion has resolved. No abnormal airspace opacity demonstrated currently. Mediastinum: Mediastinal contours are normal. Heart size is normal. Bones and chest wall: No suspicious bony abnormalities. Soft tissues appear unremarkable. IMPRESSION: [place] seen left lower lobe consolidation has resolved. Reviewed by: Harris Guerrero MD on 11/08/2020 8:42 AM PDT Approved by: Harris Guerrero MD on 11/08/2020 8:42 AM PDT Station ID: [id number]
== END 2020-11-08 07:54 | disposition home or self-care (01) ==
LOC: DI.N 07:53
PROVIDERS: ATTEND Internal Medicine
DX: J18.9 Pneumonia, unspecified organism (principal); R94.5 Abnormal results of liver function studies
CPT/HCPCS: 36415; 80053

== ENCOUNTER 2020-12-02 14:54 | Outpatient (CLI) | payer OTHER ==
[2020-12-02 16:20] VITALS: BP 140/80
--- NOTE | 2020-12-02 16:20 | SLEEP CARE CONSULTATION ---
Information from patient questionnaire entered by Keysha Magana. I have reviewed and concur with the information entered by Keysha Magana. This document represents the service I personally performed and the decisions made by me, Linnea Vallejo MD, [facility]. History of Present Illness Service Date and Time: 12/02/2020 1454 Reason for Visit: New patient Chief Complaint: reports: Snoring, Observed pauses in breathing ( says possibly pauses in breathing) Date of Onset: snoring-possibly since 20, paused breathing-unknown Usual bedtime: 12 am Time it takes to fall asleep: within 10 minutes Snores at night: Yes Observed to quit breathing while asleep: No Number of times waking at night: 2 Reasons for waking at night: reports: Bathroom Recalls having dreams: Yes Usually gets out of bed at: 6:30 am weekdays, 8-9 am on weekends Feels refreshed in the morning: Yes (when sleeping in or go to bed early) Morning headache: No Sleepy or fatigued during the day: Yes (usually after a lunch meal) Ever fallen asleep while driving: No (close) Takes day naps: Yes (sometimes) Dreams during day naps: Yes Prior sleep studies: No Additional HPI information: I had the pleasure of seeing Mr. Calderon today regarding possible obst ructive sleep apnea-hypopnea. As you know, he is a 50 year old gentleman who complains of loud snore and his has seen him quit breathing at night. He occasionally wakes up from his own snore but not choking or gasping. He feels sleepy during the day. His [place] Sleepiness Scale score is 14. His weight has been about the same. 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 Patient is and lives in [place]. Have you smoked in the past 12 months: No Cigarettes per day (20/pack): 1 (-2 experiment) Years of smokin (a couple months) Quit date: 1993 Smoking Pack Years: 0 Alcohol use: Yes Alcohol amount and frequency: 1-2 drinks occasionallyweekends, maybe a day during the week. Caffeine use: No Family History Family history of sleep disordered breathing: No Allergies and Home Medications Drug allergies reviewed: Yes Home medication list reviewed: Yes Review of Systems Weight gain over past 5 years: 20 Weight loss over past 5 years: 15 Cardiovascular: denies: high blood pressure, palpitations, chest pain, irregular heart rate or pulse, leg or foot swelling, have to sleep sitting up, other Respiratory: denies: shortness of breath, wheeze, sputum production, chronic cough, other Gastrointestinal: denies: heartburn, difficulty swallowing, nausea, vomitting, diarrhea, abdominal pain, other Urinary: denies: incontinence, frequency, urgency, impotence, other Neurological: denies: headaches, seizure, head trauma, disorientation, speech dysfunction, gait or balance problems, fainting or unconsciousness, other Ear/Nose/Throat: reports: nasal congestion, dry mouth/throat, wisdom teeth removed Endocrine: reports: sluggishness Musculoskeletal: reports: joint pain Immunologic: reports: sneezing Physical Exam Vital signs obtained and entered by: Dr. Vallejo Blood Pressure: 140/80 Cuff size: regular Heart Rate: 76 O2 Saturation: 96 Height: 5 ft 4 in Weight: 205 lb Body Mass Index: 35.2 BMI Classification: Obese Neck circumference: 16 Mood/affect: normal HEENT: No craniofacial malformation Nostrils: patent to airflow Turbinates: normal Septum: midline Mouth and throat: narrow oropharynx Soft palate: long Hard palate: normal Uvula: normal Uvula visualization: 25% Mallampati Class III Tongue: normal in size Tonsils: small Chin and jaw: normal size and position Neck: normal w/o lymphadenopathy or thyromegaly Heart: regular rate and rhythm Lungs: clear bilaterally Abdomen: soft Extremities: no edema or clubbing Neurologic: intact Impression and Plan IMPRESSION: 1. Obstructive Sleep Apnea-Hypopnea Syndrome, as suggested by history of loud and irregular snoring, observed cessation of breath while asleep, cognitive impairment, and daytime hypersomnolence. Narrow oropharynx and obesity are common predisposing factors for obstructive sleep apnea-hypopnea syndrome. I recommend proceeding to polysomnography to confirm the diagnosis and to assess severity. If he has significant sleep disordered breathing, a manual CPAP titration study will also be performed to find the optimal treatment pressure. I informed the patient of what the sleep studies involve and after some discussion, he agreed to proceed. Plan: 1. Schedule polysomnography + manual CPAP titration study and return in 1 to 2 weeks after the study to discuss result and initiate therapy. 2. Avoid long distance driving or when feeling sleepy. 3. Avoid alcohol, sedative and muscle relaxant around bedtime. 4. Attempt to lose weight. Counseling Topics: Weight control Follow up with Sleep Care in: 1-2 months Visit Type: In Office Time Spent with Patient (minutes): 15 Provider Statement: I spent 100% of the Face to Face Visit with the patient with greater than 50% spent counseling the patient and coordination of care.
== END 2020-12-02 14:55 | disposition home or self-care (01) ==
LOC: SC 14:54
PROVIDERS: ATTEND Internal Medicine Pulmonary Disease
DX: G47.10 Hypersomnia, unspecified (principal); R41.89 Other symptoms and signs involving cognitive functions and awareness; R06.81 Apnea, not elsewhere classified; R06.83 Snoring; E66.9 Obesity, unspecified; Z68.35 Body mass index [BMI] 35.0-35.9, adult
CPT/HCPCS: 99202; 99212

== ENCOUNTER 2021-01-15 19:31 | Outpatient (CLI) | payer OTHER | END 2021-01-15 19:32 | disposition home or self-care (01) | LOC: SC 19:31 | PROVIDERS: ATTEND Internal Medicine Pulmonary Disease | DX: G47.33 Obstructive sleep apnea (adult) (pediatric) (principal) | CPT/HCPCS: 95810 ==

== ENCOUNTER 2021-01-21 15:19 | Outpatient (CLI) | payer OTHER ==
--- NOTE | 2021-01-21 16:02 | SLEEP CARE CONSULTATION ---
Information from patient questionnaire entered by Gerard Watkins. I have reviewed and concur with the information entered by Gerard Watkins. This document represents the service I personally performed and the decisions made by , Breanna Villatoro ARNP. History of Present Illness Service Date and Time: 01/21/2021 1519 Initial [place] Sleepiness Scale score: 14 (in 2020) Current [place] Sleepiness Scale score: 14 Additional HPI information: CLEMENCIA FRANCIS returns via video telehealth visit for follow up and results of the recently performed polysomnography. I explained the pathophysiology behind obstructive sleep apnea. We then spent quite a bit of time discussing different treatment options. For mild obstructive sleep apnea, surgery and oral appliance are alternatives to nasal CPAP therapy but in moderate or severe cases, nasal CPAP is the most effective and reliable treatment. I reviewed the impact of weight changes on sleep apnea and strongly recommended losing weight. After some discussion, the patient would like to see an ENT specialist about possible surgery options to reduce apneas. Patient counseled not drink alcohol less than 4 hours before bedtime as it can increase snoring and apnea. Patient was cautioned about risks of drowsy driving until sleepiness symptoms resolve. Sleep Study - Results Type of Sleep Study: Polysomnography Prior sleep studies: No Polysomnography/Home Sleep Study results: IMPRESSION: The quality of the study is good. The patient had normal sleep efficiency. Except for mild sleep fragmentation, the sleep architecture was normal as well. Respiratory monitoring showed moderate obstructive sleep apnea-hypopnea (AHI = 19.5) associated with frequent arousals, oxyhemoglobin desaturation and moderate hypoxia (adam oxygen saturation of 79%). The respiratory events occurred more frequently during supine sleep (supine AHI = 35.4; non-supine = 14.89). Snore was light to loud in intensity. There was no significant periodic leg movement of sleep. Cardiac rhythm was normal sinus rhythm without significant arrhythmia. No abnormal behavior (parasomnia) observed during the night. Allergies and Home Medications Home medication list reviewed: Yes (no changes) Review of Systems Review of systems same as previous: Yes (no changes) Physical Exam Vital signs obtained and entered by: Telehealth visit to reduce exposure during Covid pandemic Height: 5 ft 4 in Impression and Plan 1. Obstructive Sleep Apnea-Hypopnea Syndrome, moderate, with lowest oxygen saturation of 79%. Positive pressure therapy could benefit his overall health and reduce risks of cardiovascular or cerebrovascular adverse events. Patient does not think he could tolerate anything "foreign" on his face. He would like to explore surgery with an ENT specialist. I encouraged him to seek a referral from his PCP for an ENT who will take his insurance. He may follow-up with us as needed. Patient encouraged strongly to lose weight as this will help reduce the apneas he experiences and he voiced understanding. Because the apnea is more severe supine, I instructed to avoid sleeping supine using pillow positioning until able to start CPAP use. 2. Hypoxemia, moderate. Patient found to have a adam oxygen saturation of 79%. Patient with oxygen saturation under 90% for most of night. * Patient to seek ENT referral for evaluation * Attempt to lose weight. * Avoid alcohol consumption near bedtime. * Avoid supine sleep until using CPAP. * The patient is again cautioned about driving until sleepiness completely resolves. * Return when ready to discuss other options if ENT referral not successful. Counseling Topics: Sleeping position, Weight loss health impact Visit Type: Telehealth Video Video Type: ee Patient Location: at work Location of Provider: Office Patient agrees and consents to this telehealth visit type: Yes Patient agrees to have their insurance billed: Yes Time Spent with Patient (minutes): 23 Provider Statement: I spent 100% of the Telehealth Video Call with the patient with greater than 50% spent counseling the patient and coordination of care.
== END 2021-01-21 15:20 | disposition home or self-care (01) ==
LOC: SC 15:19
PROVIDERS: ATTEND Nurse Practitioner Family
DX: G47.33 Obstructive sleep apnea (adult) (pediatric) (principal); R09.02 Hypoxemia

== ENCOUNTER 2021-03-31 07:04 | Outpatient (CLI) | payer OTHER ==
[2021-03-31 13:06] LABS: BASOPHILS # (AUTO) 0.1 10^3/uL (0.0-0.1); BASOPHILS % (AUTO) 0.9 %; EOSINOPHILS # (AUTO) 0.6 10^3/uL (0.0-0.7); EOSINOPHILS % (AUTO) 8.2 %; HCT - HEMATOCRIT 49.2 % (42.0-52.0); HGB - HEMOGLOBIN 16.4 g/dL (14.0-18.0); LYMPHOCYTES # (AUTO) 2.6 10^3/uL (1.5-3.5); LYMPHOCYTES % (AUTO) 37.9 %; MEAN CORPUSCULAR HEMOGLOBIN 30.4 pg (27.0-31.0); MEAN CORPUSCULAR HGB CONC 33.3 g/dL (32.0-36.0); MEAN CORPUSCULAR VOLUME 91.1 fL (80.0-94.0); MEAN PLATELET VOLUME 9.3 fL (7.4-11.4); MONOCYTES # (AUTO) 0.5 10^3/uL (0.0-1.0); MONOCYTES % (AUTO) 7.2 %; NEUTROPHILS # (AUTO) 3.1 10^3/uL (1.5-6.6); NEUTROPHILS % (AUTO) 45.2 %; PLT - PLATELET COUNT 260 10^3/uL (130-450); WHITE BLOOD COUNT 6.8 x10^3/uL (4.8-10.8)
[2021-03-31 13:38] LABS: ALBUMIN 4.2 g/dL (3.2-5.5); ALBUMIN/GLOBULIN RATIO 1.4 (1.0-2.2); ALKALINE PHOSPHATASE 66 IU/L (42-121); ALT ALANINE AMINOTRANSFERASE 38 IU/L (10-60); AST ASPARTATE AMINOTRANSFERASE 27 IU/L (10-42); BILIRUBIN,TOTAL 0.6 mg/dL (0.2-1.0); BUN - BLOOD UREA NITROGEN 12 mg/dL (6-20); CALCIUM 8.7 mg/dL (8.5-10.3); CARBON DIOXIDE - CO2 24 mmol/L (21-32); CHLORIDE 104 mmol/L (101-111); CHOL/HDL RATIO 8.2 (<5.0); CHOLESTEROL 312 mg/dL; CREATININE 0.8 mg/dL (0.6-1.2); GFR - MDRD 102 (>89); GLUCOSE 131 mg/dL (70-100); HDL CHOLESTEROL 38 mg/dL; POTASSIUM 3.9 mmol/L (3.5-5.0); SODIUM 135 mmol/L (135-145); TOTAL PROTEIN 7.2 g/dL (6.7-8.2); TRIGLYCERIDES 527 mg/dL; URIC ACID 4.4 mg/dL (2.6-7.2)
[2021-03-31 13:49] LABS: CREATININE,URINE 126.6 mg/dL; MICROALBUM/CREATININE RATIO,UR 3.2 ug/mg (<30.0); MICROALBUMIN,URINE 0.4 mg/dL (0-300.0)
[2021-03-31 14:06] LABS: LDL CHOLESTEROL,DIRECT 180 mg/dL; LDLD/HDL RATIO 4.7 (<3.6)
[2021-03-31 14:17] LABS: SLIDE REVIEW? Indicated
[2021-03-31 14:22] LABS: ESTIMATED AVERAGE GLUCOSE 114 mg/dL (70-100); HEMOGLOBIN A1c% 5.6 % (4.27-6.07); PLATELET ESTIMATE, MANUAL NORMAL (130-450,000) (NORMAL); PLATELET MORPHOLOGY NORMAL APPEARANCE (NORMAL); RBC MORPHOLOGY (MULTIPLE) NORMAL APPEARANCE (NORMAL); WBC MORPHOLOGY (MULTIPLE) NORMAL APPEARANCE (NORMAL)
[2021-03-31 14:23] LABS: DIFFERENTIAL COMMENT MANUAL=AUTO DIFF
== END 2021-03-31 07:05 | disposition home or self-care (01) ==
LOC: LAB.N 07:04
PROVIDERS: ATTEND Internal Medicine
DX: E78.5 Hyperlipidemia, unspecified (principal); R73.01 Impaired fasting glucose; N20.9 Urinary calculus, unspecified
CPT/HCPCS: 36415; 80053; 80061; 82043; 82570; 83036; 83721; 84550; 85025

== ENCOUNTER 2021-04-11 16:19 | Outpatient (CLI) | payer OTHER ==
--- NOTE | 2021-04-11 20:17 | XRAY Report ---
PROCEDURE: Ribs w/PA Chest RT INDICATIONS: RIGHT POSTERIOR RIB PAIN TECHNIQUE: 3 views of the right ribs were acquired, along with a single view chest. COMPARISON: CXR 11/08/2020. FINDINGS: Surgical changes and devices: Cholecystectomy clips. Bones and chest wall: No fractures or dislocations. No suspicious bony lesions. Overlying soft tis sues appear unremarkable. Lungs and pleura: No pleural effusions or pneumothorax. Lungs appear clear. Mediastinum: Mediastinal contours appear normal. Heart size is normal. IMPRESSION: No displaced right rib fracture. No acute cardiopulmonary abnormality. Reviewed by: Angel Kim MD on 04/11/2021 8:16 PM PST Approved by: Angel Kim MD on 04/11/2021 8:16 PM PST Station ID: [id number]
== END 2021-04-11 16:20 | disposition home or self-care (01) ==
LOC: DI.N 16:19
PROVIDERS: ATTEND Internal Medicine
DX: R07.81 Pleurodynia (principal)

== ENCOUNTER 2021-10-09 07:12 | Outpatient (CLI) | payer OTHER | END 2021-10-09 07:13 | disposition home or self-care (01) | LOC: LAB.N 07:12 | PROVIDERS: ATTEND Internal Medicine | DX: Z53.9 Procedure and treatment not carried out, unspecified reason (principal) ==

== ENCOUNTER 2022-02-12 09:04 | Outpatient (CLI) | payer OTHER ==
[2022-02-12 12:03] LABS: BASOPHILS # (AUTO) 0.1 10^3/uL (0.0-0.1); BASOPHILS % (AUTO) 0.9 %; EOSINOPHILS # (AUTO) 0.6 10^3/uL (0.0-0.7); EOSINOPHILS % (AUTO) 7.8 %; HCT - HEMATOCRIT 51.3 % (42.0-52.0); HGB - HEMOGLOBIN 16.6 g/dL (14.0-18.0); LYMPHOCYTES % (AUTO) 24.7 %; MEAN CORPUSCULAR HEMOGLOBIN 29.9 pg (27.0-31.0); MEAN CORPUSCULAR HGB CONC 32.4 g/dL (32.0-36.0); MEAN CORPUSCULAR VOLUME 92.3 fL (80.0-94.0); MEAN PLATELET VOLUME 9.1 fL (7.4-11.4); MONOCYTES # (AUTO) 0.6 10^3/uL (0.0-1.0); MONOCYTES % (AUTO) 7.9 %; NEUTROPHILS # (AUTO) 4.6 10^3/uL (1.5-6.6); NEUTROPHILS % (AUTO) 57.8 %; PLT - PLATELET COUNT 280 10^3/uL (130-450); RED BLOOD COUNT 5.56 10^6/uL (4.70-6.10); RED CELL DISTRIBUTION WIDTH 12.4 % (12.0-15.0)
[2022-02-12 12:29] LABS: CREATININE,URINE 118.4 mg/dL; MICROALBUM/CREATININE RATIO,UR 3.4 ug/mg (<30.0); MICROALBUMIN,URINE 0.4 mg/dL (0-300.0)
[2022-02-12 12:54] LABS: ESTIMATED AVERAGE GLUCOSE 120 mg/dL (70-100); HEMOGLOBIN A1c% 5.8 % (4.27-6.07)
[2022-02-12 13:04] LABS: ALBUMIN 4.4 g/dL (3.2-5.5); ALBUMIN/GLOBULIN RATIO 1.3 (1.0-2.2); ALKALINE PHOSPHATASE 56 IU/L (42-121); ALT ALANINE AMINOTRANSFERASE 39 IU/L (10-60); AST ASPARTATE AMINOTRANSFERASE 26 IU/L (10-42); BILIRUBIN,TOTAL 0.8 mg/dL (0.2-1.0); BUN - BLOOD UREA NITROGEN 15 mg/dL (6-20); CALCIUM 9.5 mg/dL (8.5-10.3); CARBON DIOXIDE - CO2 26 mmol/L (21-32); CHLORIDE 106 mmol/L (101-111); CHOL/HDL RATIO 3.9 (<5.0); CHOLESTEROL 254 mg/dL; CREATININE 1.1 mg/dL (0.6-1.2); GFR - MDRD 70 (>89); GLUCOSE 108 mg/dL (70-100); HDL CHOLESTEROL 65 mg/dL; LDL CHOLESTEROL,CALCULATED 171 mg/dL; LDL CHOLESTEROL,DIRECT 178 mg/dL; LDL/HDL RATIO 2.6 (<3.6); POTASSIUM 4.5 mmol/L (3.5-5.0); SODIUM 139 mmol/L (135-145); TOTAL PROTEIN 7.7 g/dL (6.7-8.2); TRIGLYCERIDES 90 mg/dL; VLDL CHOLESTEROL 18 mg/dL
[2022-02-12 13:12] LABS: THYROID STIMULATING HORMONE 1.2 uIU/mL (0.34-5.60)
== END 2022-02-12 09:05 | disposition home or self-care (01) ==
LOC: LAB.N 09:04
PROVIDERS: ATTEND Internal Medicine
DX: E88.81 Metabolic syndrome and other insulin resistance (principal); E78.1 Pure hyperglyceridemia
CPT/HCPCS: 36415; 80053; 80061; 82043; 82570; 83036; 83721; 84443; 85025

== ENCOUNTER 2022-03-30 11:06 | Emergency (ER) | payer OTHER ==
[2022-03-30 11:41] LABS: GLUCOSE, URINE (UA) NEGATIVE (NEGATIVE); KETONES,URINE (UA) NEGATIVE (NEGATIVE); LEUKOCYTE ESTERASE, URINE NEGATIVE (NEGATIVE); NITRITE,URINE NEGATIVE (NEGATIVE); OCCULT BLOOD,URINE LARGE (NEGATIVE); PH,URINE 5.5 PH (5.0-7.5); PROTEIN,URINE 100 mg/dL (NEGATIVE); UROBILINOGEN,URINE 0.2 (NORMAL) E.U./dL (NORMAL)
[2022-03-30 11:50] LABS: BASOPHILS # (AUTO) 0.1 10^3/uL (0.0-0.1); BASOPHILS % (AUTO) 0.8 %; EOSINOPHILS # (AUTO) 0.5 10^3/uL (0.0-0.7); EOSINOPHILS % (AUTO) 5.4 %; HCT - HEMATOCRIT 50.6 % (42.0-52.0); HGB - HEMOGLOBIN 16.6 g/dL (14.0-18.0); LYMPHOCYTES # (AUTO) 2.3 10^3/uL (1.5-3.5); MEAN CORPUSCULAR HEMOGLOBIN 29.7 pg (27.0-31.0); MEAN CORPUSCULAR HGB CONC 32.8 g/dL (32.0-36.0); MEAN CORPUSCULAR VOLUME 90.5 fL (80.0-94.0); MEAN PLATELET VOLUME 8.7 fL (7.4-11.4); MONOCYTES # (AUTO) 0.7 10^3/uL (0.0-1.0); NEUTROPHILS # (AUTO) 5.5 10^3/uL (1.5-6.6); NEUTROPHILS % (AUTO) 59.8 %; PLT - PLATELET COUNT 257 10^3/uL (130-450); RED BLOOD COUNT 5.59 10^6/uL (4.70-6.10); RED CELL DISTRIBUTION WIDTH 12.1 % (12.0-15.0); WHITE BLOOD COUNT 9.1 x10^3/uL (4.8-10.8)
[2022-03-30 12:05] LABS: ALBUMIN 4.3 g/dL (3.2-5.5); ALBUMIN/GLOBULIN RATIO 1.3 (1.0-2.2); BILIRUBIN,TOTAL 0.8 mg/dL (0.2-1.0); CALCIUM 9.2 mg/dL (8.5-10.3); CREATININE 1.1 mg/dL (0.6-1.2); POTASSIUM 4.5 mmol/L (3.5-5.0); TOTAL PROTEIN 7.7 g/dL (6.7-8.2)
[2022-03-30 12:10] LABS: BILIRUBIN,URINE NEGATIVE (NEGATIVE); CLARITY,URINE CLOUDY (CLEAR); ICTOTEST,URINE NEGATIVE
[2022-03-30 12:11] LABS: BACTERIA,URINE Few /HPF (None Seen); RBC,URINE TNTC /HPF (0-5); SQUAMOUS EPITHELIAL CELL,UR RARE Squamous (<= Few); WBC,URINE >25 /HPF (0-3)
--- NOTE | 2022-03-30 12:19 | ED Physician Documentation ---
PD HPI ABD PAIN - Stated complaint Stated Complaint: KIDNEY/LOW BACK PAIN - Chief complaint Chief Complaint: Abd Pain - History obtained from History obtained from: Patient PD PAST MEDICAL HISTORY - Past Medical History Cardiovascular: High cholesterol Respiratory: None Neuro: None Endocrine/Autoimmune: None GI: None : Kidney stones HEENT: None Psych: None Derm: None - Past Surgical History Past Surgical History: Yes General: Cholecystectomy - Present Medications Home Medications: Ambulatory Orders Medication Instructions Recorded Confirmed Lovastatin [Altoprev] 20 mg PO 04/25/20 allopurinoL [Zyloprim] 300 mg PO 04/25/20 hydrOXYzine PAMOATE [Vistaril] 25 mg PO 04/25/20 Amoxicillin 2 tab PO TID 7 Days #42 cap 10/02/20 Doxycycline Hyclate 100 mg PO BID #14 tab 10/02/20 Oxycodone HCl [Roxicodone] 5 mg PO Q6H PRN #15 tab 10/02/20 - Allergies Allergies/Adverse Reactions: Allergies Allergy/AdvReac Type Severity Reaction Status Date / Time ibuprofen AdvReac Emesis Verified 03/30/22 11:28 - Social History Does the pt smoke?: No Smoking Status: Never smoker Does the pt drink ETOH?: Yes Does the pt have substance abuse?: No - Immunizations Immunizations are current?: Yes - POLST Patient has POLST: No Results - Vitals Vitals: Vital Signs - 24 hr 03/30/22 11:26 Temperature 36.4 C L Heart Rate 72 Respiratory 16 Rate Blood Pressure 140/91 H O2 Saturation 94 Oxygen O2 Source Room air - Labs Labs: Laboratory Tests 03/30/22 03/30/22 03/30/22 11:30 11:47 11:47 WBC 9.1 RBC 5.59 Hgb 16.6 Hct 50.6 MCV 90.5 MCH 29.7 MCHC 32.8 RDW 12.1 Plt Count 257 MPV 8.7 Neut # (Auto) 5.5 Lymph # (Auto) 2.3 [place] # (Auto) 0.7 Eos # (Auto) 0.5 Baso # (Auto) 0.1 Absolute Nucleated RBC 0.00 Nucleated RBC % 0.0 Sodium 136 Potassium 4.5 Chloride 101 Carbon Dioxide 25 Anion Gap 10.0 BUN 17 Creatinine 1.1 Estimated GFR (MDRD) 70 L Glucose 110 H Calcium 9.2 Total Bilirubin 0.8 AST 32 ALT 61 H Alkaline Phosphatase 57 Total Protein 7.7 Albumin 4.3 Globulin 3.4 Albumin/Globulin Ratio 1.3 Lipase 46 Urine Color BROWN Urine Clarity CLOUDY Urine pH 5.5 Ur Specific [place] >=1.030 H Urine Protein 100 H Urine Glucose (UA) NEGATIVE Urine Ketones NEGATIVE Urine Occult Blood LARGE H Urine Nitrite NEGATIVE Urine Bilirubin NEGATIVE Urine Urobilinogen 0.2 (NORMAL) Ur Leukocyte Esterase NEGATIVE Urine RBC TNTC H Urine WBC >25 H Ur Squamous Epith Cells RARE Squamous Urine Bacteria Few Ur Microscopic Review INDICATED Urine Culture Comments NOT INDICATED
[2022-03-30] MEDS ORDERED: TAMSULOSIN 0.4 MG CAPSULE PO STA (12:30)
[2022-03-30] MEDS ORDERED: oxyCODONE 5 MG TABLET PO STA (12:30)
--- NOTE | 2022-03-30 12:32 | ED Physician Documentation ---
PD HPI ABD PAIN - Stated complaint Stated Complaint: KIDNEY/LOW BACK PAIN - Chief complaint Chief Complaint: Abd Pain - History obtained from History obtained from: Patient - Additional information Additional information: 52-year-old gentleman with history of recurrent renal colic, lithotripsy by 1, followed by Dr. Shane. Had a follow-up routine visit a couple of months ago at which point he had a known 6 mm right nephrolith. It became symptomatic over the weekend with minor pain and hematuria but more severe pain around 7 AM this morning with right flank pain. He denies fevers or nausea. Review of Systems Constitutional: denies: Fever, Chills Respiratory: reports: Reviewed and negative GI: reports: Reviewed and negative PD PAST MEDICAL HISTORY - Past Medical History Cardiovascular: High cholesterol Respiratory: None Neuro: None Endocrine/Autoimmune: None GI: None : Kidney stones HEENT: None Psych: None Derm: None - Past Surgical History Past Surgical History: Yes General: Cholecystectomy - Present Medications Home Medications: Ambulatory Orders Medication Instructions Recorded Confirmed Lovastatin [Altoprev] 20 mg PO 04/25/20 allopurinoL [Zyloprim] 300 mg PO 04/25/20 hydrOXYzine PAMOATE [Vistaril] 25 mg PO 04/25/20 Amoxicillin 2 tab PO TID 7 Days #42 cap 10/02/20 Doxycycline Hyclate 100 mg PO BID #14 tab 10/02/20 Oxycodone HCl [Roxicodone] 5 mg PO Q6H PRN #15 tab 10/02/20 Oxycodone HCl/Acetaminophen 1 - 2 each PO Q6H PRN #20 tablet 03/30/22 [Percocet 5-325 mg Tablet] Tamsulosin [Flomax] 0.4 mg PO DAILY #14 cap 03/30/22 - Allergies Allergies/Adverse Reactions: Allergies Allergy/AdvReac Type Severity Reaction Status Date / Time ibuprofen AdvReac Emesis Verified 03/30/22 11:28 - Social History Does the pt smoke?: No Smoking Status: Never smoker Does the pt drink ETOH?: Yes Does the pt have substance abuse?: No - Immunizations Immunizations are current?: Yes - POLST Patient has POLST: No PD ED PE NORMAL - Vitals Vital signs reviewed: Yes - General General: Alert and oriented X 3, No acute distress - Abdomen Abdomen: Normal bowel sounds, Soft, Non tender - Back Back: Other (Mild right CVA tenderness) - Neuro Neuro: Alert and oriented X 3, Normal speech - Psych Psych: Normal mood, Normal affect Results - Vitals Vitals: Vital Signs - 24 hr 03/30/22 11:26 Temperature 36.4 C L Heart Rate 72 Respiratory 16 Rate Blood Pressure 140/91 H O2 Saturation 94 Oxygen O2 Source Room air - Labs Labs: Laboratory Tests 03/30/22 03/30/22 03/30/22 11:30 11:47 11:47 WBC 9.1 RBC 5.59 Hgb 16.6 Hct 50.6 MCV 90.5 MCH 29.7 MCHC 32.8 RDW 12.1 Plt Count 257 MPV 8.7 Neut # (Auto) 5.5 Lymph # (Auto) 2.3 [place] # (Auto) 0.7 Eos # (Auto) 0.5 Baso # (Auto) 0.1 Absolute Nucleated RBC 0.00 Nucleated RBC % 0.0 Sodium 136 Potassium 4.5 Chloride 101 Carbon Dioxide 25 Anion Gap 10.0 BUN 17 Creatinine 1.1 Estimated GFR (MDRD) 70 L Glucose 110 H Calcium 9.2 Total Bilirubin 0.8 AST 32 ALT 61 H Alkaline Phosphatase 57 Total Protein 7.7 Albumin 4.3 Globulin 3.4 Albumin/Globulin Ratio 1.3 Lipase 46 Urine Color BROWN Urine Clarity CLOUDY Urine pH 5.5 Ur Specific [place] >=1.030 H Urine Protein 100 H Urine Glucose (UA) NEGATIVE Urine Ketones NEGATIVE Urine Occult Blood LARGE H Urine Nitrite NEGATIVE Urine Bilirubin NEGATIVE Urine Urobilinogen 0.2 (NORMAL) Ur Leukocyte Esterase NEGATIVE Urine RBC TNTC H Urine WBC >25 H Ur Squamous Epith Cells RARE Squamous Urine Bacteria Few Ur Microscopic Review INDICATED Urine Culture Comments NOT INDICATED PD MEDICAL DECISION MAKING - ED course ED course: 52-year-old gentleman with recurrent renal colic. We discussed imaging today but he is being actively followed by urologist and has a known nephrolith with known size so decided to forego CT imaging today and have him follow-up with his urologist. Departure - Departure Disposition: 01 Home, Self Care Clinical Impression: Renal colic Condition: Good Record reviewed to determine appropriate education?: Yes Instructions: ED Stone Renal W Colic Prescriptions: Tamsulosin [Flomax] 0.4 mg PO DAILY #14 cap Oxycodone HCl/Acetaminophen [Percocet 5-325 mg Tablet] 1 - 2 each PO Q6H PRN #20 tablet PRN Reason: pain Comments: Follow-up with Dr. Shane, next available appointment. Return for new or worsening symptoms. I sent your prescriptions electronically to [facility] in [place]. I am prescribing a short course of narcotic pain medication for you. These are potentially dangerous and addictive medications that should be used carefully. These medications may constipate you. Take an [id number] stool softener (docusate) twice daily with plenty of water while taking these medications. If you go 24 hours without a bowel movement, take [id number] miralax, per package instructions. Do not drink or drive while taking these medications. If you received narcotic or sedating medications while in the emergency department, do not drive for 24 hours. Store this medication in a safe, secure place and out of reach of children. It is a violation of federal law to give or sell this medication to another person or to use in a manner other than prescribed. The ED will not refill narcotic prescriptions, including prescriptions lost or stolen. To dispose of unwanted medications: 1. [facility] [address] [facility] in [place] has a medication drop box. They accept prescription medications (in pill form) Wednesday through Wednesday 9:00 a.m. to 5:00 p.m. 2. The [facility] accepts prescription medications (in pill form only) for disposal year round. Call for more information. 3. Contact the [facility] for the next [facility] sponsored prescription drug collection event. , x7310, or [phone]; Note that many narcotic pain relievers also contain Tylenol/acetaminophen. Please ensure that your total dose of acetaminophen from all sources does not exceed 3 g (3000 mg) per day.
[2022-03-30 12:48] VITALS: BP 149/93
== END 2022-03-30 12:48 | disposition home or self-care (01) ==
LOC: ED 11:06
DX: N23 Unspecified renal colic (principal)
CPT/HCPCS: 36415; 80053; 81001; 83690; 85025; 99282; 99283; A9270; 81003; 87086

== ENCOUNTER 2022-05-10 23:30 | Emergency (ER) | payer OTHER ==
[2022-05-10] MEDS ORDERED: SODIUM CHLORIDE 0.9% 1,000 ML IV STA (23:44)
--- OUTSIDE RECORDS SUMMARY | 2022-05-10 23:52 | EXTERNAL MEDICAL SUMMARY RPT | Continuity of Care Document ---
:1970 Author Organization [facility] Address [address] [place] [address] Phone Allergies No information. Encounters No information. Functional Status No information. Immunizations No information. Medications No information. Problems date description facility 2022-04-09 15:41 Personal history of urinary calculi [facility] Procedures No information. Results/Labs test date author facility value unit interpret ation Result panel 1 (unknown) (no (unknown) (unknown) (no value) (units (unk nown) date) unknown) (unknown) (no (unknown) (unknown) 04/09/22 (units (unkno wn) date) unknown) (unknown) (no (unknown) (unknown) [address] [place] [address] (units (unknown) date) unknown) (unknown) (no (unknown) (unknown) 5 mm thick noncontrast (u nits (unknown) date) images acquired from unknown) the diaphragm to the symphysis (unknown) (no (unknown) (unknown) : [id number] (units (u nknown) date) unknown) (unknown) (no (unknown) (unknown) Accession Number: (units (unknown) date) [id number] unknown) (unknown) (no (unknown) (unknown) Age/Sex: 52 / M Date (uni ts (unknown) date) of Service: unknown) (unknown) (no (unknown) (unknown) [place] [address] (unit s (unknown) date) unknown) (unknown) (no (unknown) (unknown) Approved by: Talat (unit s (unknown) date) Jacobo Hernandez on unknown) 04/10/2022 at 14:24 (unknown) (no (unknown) (unknown) Bones: Multilevel (units (unknown) date) degenerative change of unknown ) the visualized spine. (unknown) (no (unknown) (unknown) COMPARISON: Sri (units (unknown) date) [facility], CR, XR unknow n) ABDOMEN 1 VIEW, 04/01/2022, 11:34. (unknown) (no (unknown) (unknown) CT Scan Report (units (unknown) date) unknown) (unknown) (no (unknown) (unknown) : 1970 (units (unknown) date) Acct:[id number] unknown) (unknown) (no (unknown) (unknown) Dictated by: Talat (unit s (unknown) date) Jacobo Hernandez on unknown) 04/10/2022 at 14:04 (unknown) (no (unknown) (unknown) FINDINGS: (units (unkn own) date) unknown) (unknown) (no (unknown) (unknown) Few (units (unkno wn) date) unknown) (unknown) (no (unknown) (unknown) Gallbladder (units (un known) date) unknown) (unknown) (no (unknown) (unknown) Hounsfield units. (units (unknown) date) Smaller nonobstructing unknown ) stone present at the right mid (unknown) (no (unknown) (unknown) IMPRESSION: (units (un known) date) unknown) (unknown) (no (unknown) (unknown) INDICATIONS: Personal (un its (unknown) date) history of urinary unknown) calculi (unknown) (no (unknown) (unknown) Image quality: (units (unknown) date) Adequate. unknown) (unknown) (no (unknown) (unknown) [facility] (units (unknown) date) unknown) (unknown) (no (unknown) (unknown) Loc: CT (units (unkno wn) date) unknown) (unknown) (no (unknown) (unknown) Lung bases: No pleural (u nits (unknown) date) effusion. unknown) (unknown) (no (unknown) (unknown) Multiple urinary (units (unknown) date) stones are present as unknown) above, including a 4 mm stone at the (unknown) (no (unknown) (unknown) No bladder stones (units (unknown) date) visualized. unknown) (unknown) (no (unknown) (unknown) Nodes and vessels: No (un its (unknown) date) retroperitoneal or unknown) mesenteric adenopathy by size (unknown) (no (unknown) (unknown) Ordering Provider: Ata (u nits (unknown) date) Cam Shane D.O. unknown) (unknown) (no (unknown) (unknown) Other solid organs: (unit s (unknown) date) The liver is unknown) hypoattenuating compatible with steatosis. (unknown) (no (unknown) (unknown) PROCEDURE: CT IVP A/P (un its (unknown) date) W/WO unknown) (unknown) (no (unknown) (unknown) Patient: (units (unkno wn) date) Trung Calderon MR# unknow n) (unknown) (no (unknown) (unknown) Pelvis: No pathologic (un its (unknown) date) free pelvic fluid. No unknown) adenopathy. (unknown) (no (unknown) (unknown) Peritoneum and bowel: (un its (unknown) date) No bowel obstruction. unknown) No free air or substantial free (unknown) (no (unknown) (unknown) Procedure: CT IVP A/P (un its (unknown) date) W/WO unknown) (unknown) (no (unknown) (unknown) Scattered (units (unkn own) date) subcentimeter unknown) hypodensities are present which are too small to (unknown) (no (unknown) (unknown) Signed (units (unkno wn) date) unknown) (unknown) (no (unknown) (unknown) Spleen is (units (unkn own) date) unknown) (unknown) (no (unknown) (unknown) TECHNIQUE: (units (unk nown) date) unknown) (unknown) (no (unknown) (unknown) Urinary system: 8 mm (uni ts (unknown) date) nonobstructing stone unknown) right inferior kidney, internal (unknown) (no (unknown) (unknown) and inferior vena cava (u nits (unknown) date) are normal in size. unknown) (unknown) (no (unknown) (unknown) and sagittal reformats (u nits (unknown) date) were then performed of unknown ) the kidneys and ureters. For (unknown) (no (unknown) (unknown) and/or kV according to (u nits (unknown) date) patient size. unknown) (unknown) (no (unknown) (unknown) are statistically (units (unknown) date) likely to represent unknown) benign cysts. No definite evidence of a (unknown) (no (unknown) (unknown) are (units (unkno wn) date) unknown) (unknown) (no (unknown) (unknown) characterize but (units (unknown) date) unknown) (unknown) (no (unknown) (unknown) criteria. Aorta (units (unknown) date) unknown) (unknown) (no (unknown) (unknown) density 563 (units (un known) date) unknown) (unknown) (no (unknown) (unknown) described (units (unkn own) date) unknown) (unknown) (no (unknown) (unknown) diaphragm (units (unkn own) date) unknown) (unknown) (no (unknown) (unknown) dose reduction, the (unit s (unknown) date) following was used: unknown) automated exposure control, adjustment (unknown) (no (unknown) (unknown) evaluated. (units (unk nown) date) unknown) (unknown) (no (unknown) (unknown) fluid. (units (unkno wn) date) unknown) (unknown) (no (unknown) (unknown) hydroureteronephrosis. (u nits (unknown) date) unknown) (unknown) (no (unknown) (unknown) is absent . Biliary (unit s (unknown) date) system is non dilated. unknown ) Pancreas enhances normally. (unknown) (no (unknown) (unknown) kidney. 4 mm (units (u nknown) date) unknown) (unknown) (no (unknown) (unknown) normal in size and (units (unknown) date) enhancement. No adrenal unknow n) nodules. (unknown) (no (unknown) (unknown) of mA (units (unkno wn) date) unknown) (unknown) (no (unknown) (unknown) proximal ureter. No (unit s (unknown) date) hydroureteronephrosis unknown) visualized bilaterally. (unknown) (no (unknown) (unknown) pubis. After (units (u nknown) date) unknown) (unknown) (no (unknown) (unknown) punctate/1 mm (units ( unknown) date) nonobstructing stones unknown) present in the left kidney. No left (unknown) (no (unknown) (unknown) radiation (units (unkn own) date) unknown) (unknown) (no (unknown) (unknown) renal mass. The (units (unknown) date) opacified portions of unknown) the renal collecting systems and ureters (unknown) (no (unknown) (unknown) right (units (unkno wn) date) unknown) (unknown) (no (unknown) (unknown) solid (units (unkno wn) date) unknown) (unknown) (no (unknown) (unknown) stone present at the (uni ts (unknown) date) right proximal ureter. unknown ) No right hydroureteronephrosis. (unknown) (no (unknown) (unknown) the administration of (un its (unknown) date) intravenous contrast, 5 unknow n) mm thick images acquired from the (unknown) (no (unknown) (unknown) thick coronal (units ( unknown) date) unknown) (unknown) (no (unknown) (unknown) to the symphysis pubis (u nits (unknown) date) after a 10-minute unknown) delay/split bolus technique. 2 mm (unknown) (no (unknown) (unknown) unremarkable without a (u nits (unknown) date) definite filling defect unknow n) demonstrated other than above (unknown) (no (unknown) (unknown) urinary stones. Both (uni ts (unknown) date) distal ureters are not unknown ) opacified and are not well Social History No information. Vital Signs No information.
[2022-05-10 23:53] LABS: BASOPHILS % (AUTO) 0.3 %; EOSINOPHILS # (AUTO) 0.3 10^3/uL (0.0-0.7); EOSINOPHILS % (AUTO) 2.5 %; HCT - HEMATOCRIT 47.6 % (42.0-52.0); HGB - HEMOGLOBIN 15.9 g/dL (14.0-18.0); LYMPHOCYTES # (AUTO) 1.9 10^3/uL (1.5-3.5); LYMPHOCYTES % (AUTO) 19.3 %; MEAN CORPUSCULAR HEMOGLOBIN 29.4 pg (27.0-31.0); MEAN CORPUSCULAR HGB CONC 33.4 g/dL (32.0-36.0); MEAN PLATELET VOLUME 8.9 fL (7.4-11.4); MONOCYTES # (AUTO) 0.7 10^3/uL (0.0-1.0); MONOCYTES % (AUTO) 6.7 %; NEUTROPHILS # (AUTO) 7.1 10^3/uL (1.5-6.6); NEUTROPHILS % (AUTO) 70.8 %; PLT - PLATELET COUNT 247 10^3/uL (130-450); RED BLOOD COUNT 5.41 10^6/uL (4.70-6.10); RED CELL DISTRIBUTION WIDTH 12.2 % (12.0-15.0)
[2022-05-11 00:04] LABS: ALBUMIN 4.4 g/dL (3.2-5.5); ALBUMIN/GLOBULIN RATIO 1.3 (1.0-2.2); BILIRUBIN,TOTAL 0.9 mg/dL (0.2-1.0); CALCIUM 8.8 mg/dL (8.5-10.3); CREATININE 1.2 mg/dL (0.6-1.2); POTASSIUM 3.9 mmol/L (3.5-5.0); TOTAL PROTEIN 7.7 g/dL (6.7-8.2)
[2022-05-11 00:12] LABS: BILIRUBIN,URINE NEGATIVE (NEGATIVE); GLUCOSE, URINE (UA) NEGATIVE (NEGATIVE); KETONES,URINE (UA) NEGATIVE (NEGATIVE); LEUKOCYTE ESTERASE, URINE NEGATIVE (NEGATIVE); NITRITE,URINE NEGATIVE (NEGATIVE); OCCULT BLOOD,URINE LARGE (NEGATIVE); PROTEIN,URINE NEGATIVE (NEGATIVE); UROBILINOGEN,URINE 0.2 (NORMAL) E.U./dL (NORMAL)
[2022-05-11] MEDS ORDERED: HYDROmorphone 1 MG/ML CARPUJECT IVP STA (00:13)
[2022-05-11] MEDS ORDERED: ONDANSETRON 4 MG/2 ML VIAL IVP STA (00:13)
[2022-05-11] MEDS ORDERED: KETOROLAC 30 MG/ML VIAL IVP STA (00:13)
[2022-05-11 00:14] LABS: CLARITY,URINE CLEAR (CLEAR)
[2022-05-11 00:22] LABS: AMORPHOUS SEDIMENT,UR Few /LPF; BACTERIA,URINE Rare /HPF (None Seen); RBC,URINE TNTC /HPF (0-5); SQUAMOUS EPITHELIAL CELL,UR RARE Squamous (<= Few); WBC,URINE 0-3 /HPF (0-3)
[2022-05-11] MEDS ORDERED: iohexoL-300 100 ML VIAL ONE (00:22)
[2022-05-11] MEDS ORDERED: iohexoL-300 100 ML VIAL IVP ONE (00:57)
--- NOTE | 2022-05-11 01:17 | CT Report ---
PROCEDURE: ABDOMEN/PELVIS W INDICATIONS: abd pain, h/o 6mm kidney stone CONTRAST: 100 MO OMNI 300 TECHNIQUE: After the administration of intravenous contrast, 5 mm thick sections acquired from the diaphragms to the symphysis. 5 mm thick coronal and sagittal reformats were acquired. For radiation dose reducti on, the following was used: automated exposure control, adjustment of mA and/or kV according to melinda ent size. COMPARISON: CT abdomen pelvis 10/02/2020, 11/25/2017. FINDINGS: Image quality: Excellent. Lung bases:There is mild dependent atelectasis bilaterally. Heart: Heart is normal in size. ABDOMEN: Liver:There is hypoattenuation of the liver consistent with fatty infiltration. Gallbladder:Surgically absent. Biliary ducts: No biliary ductal dilatation. Pancreas: Unremarkable. Spleen: Normal in size. Adrenal Glands: No adrenal nodules. Kidneys and Ureters: Right: There is an obstructing stone within the mid right ureter measuring up to 0.4 cm with mild rig ht hydroureteronephrosis associated with perinephric and perirenal fat stranding. The right ureter is nondistended distal to the stone. There is associated delayed enhancement of the right kidney. 3 non obstructing stones are also demonstrated within the right kidney, with the largest measuring up to 0. 6 cm in the superior pole and demonstrating attenuation values of approximately 600-700 Hounsfield un its. Left: No left renal stones or hydronephrosis. Left ureter is nondistended. Stomach and Bowel: Stomach, small bowel loops, and colon are normal in caliber and wall thickness. T he appendix is normal in appearance. There is colonic diverticulosis throughout the colon without acu te diverticulitis. Peritoneum: No abnormal intraperitoneal fluid. No free air. Ventral Wall: No hernia. Abdominal Nodes: No retroperitoneal or mesenteric adenopathy by size criteria. Vessels: Aorta and inferior vena cava are normal in size. PELVIS: Pelvic Organs: Unremarkable. Bladder: Unremarkable. Pelvic Nodes: No enlarged lymph nodes. Miscellaneous: No inguinal hernias. Bones: Visualized osseous structures demonstrate no suspicious lesions. IMPRESSION: 1. Obstructing mid right ureteral stone with associated mild right hydroureteronephrosis. 2. No evidence of appendicitis. 3. Colonic diverticulosis. Reviewed by: Peter Castano MD on 05/11/2022 1:16 AM PST Approved by: Peter Castano MD on 05/11/2022 1:16 AM [facility] Station ID: [id number]
--- NOTE | 2022-05-11 01:29 | ED Physician Documentation ---
History of Present Illness - Stated complaint Stated Complaint: V/N, BACK PX - Chief complaint Chief Complaint: Abd Pain - Additonal information Additional information: Patient 52-year-old male presenting to the emergency department with right-sided flank pain. Reports history of kidney stones with known history of 6 mm stone on the right. Follows with Dr. Shane, urology at [facility]. Reports has follow-up appointment with Dr. Shane and is in the process of being scheduled for likely recurrent lithotripsy plus or minus stent placement. Reports as needed 1 stent placed in the past for persistent kidney stones. Today pain be came more severe and was associated with nausea vomiting. Denies fever, chest pain or shortness of breath. Review of Systems Constitutional: denies: Fever Eyes: denies: Loss of vision Ears: denies: Loss of hearing Nose: denies: Rhinorrhea / runny nose Cardiac: denies: Chest pain / pressure Respiratory: denies: Dyspnea GI: reports: Abdominal Pain, Nausea, Vomiting PD PAST MEDICAL HISTORY - Past Medical History Cardiovascular: High cholesterol Respiratory: None Neuro: None Endocrine/Autoimmune: None GI: None : Kidney stones HEENT: None Psych: None Derm: None - Past Surgical History Past Surgical History: Yes General: Cholecystectomy - Present Medications Home Medications: Ambulatory Orders Medication Instructions Recorded Confirmed Lovastatin [Altoprev] 20 mg PO 04/25/20 allopurinoL [Zyloprim] 300 mg PO 04/25/20 hydrOXYzine PAMOATE [Vistaril] 25 mg PO 04/25/20 Amoxicillin 2 tab PO TID 7 Days #42 cap 10/02/20 Doxycycline Hyclate 100 mg PO BID #14 tab 10/02/20 Oxycodone HCl [Roxicodone] 5 mg PO Q6H PRN #15 tab 10/02/20 Oxycodone HCl/Acetaminophen 1 - 2 each PO Q6H PRN #20 tablet 03/30/22 [Percocet 5-325 mg Tablet] Tamsulosin [Flomax] 0.4 mg PO DAILY #14 cap 03/30/22 Ondansetron Odt [Zofran] 4 mg TL Q6H PRN #10 tablet 05/11/22 Oxycodone HCl/Acetaminophen 1 - 2 each PO Q6H PRN #14 tablet 05/11/22 [Percocet 5-325 mg Tablet] - Allergies Allergies/Adverse Reactions: Allergies Allergy/AdvReac Type Severity Reaction Status Date / Time ibuprofen AdvReac Emesis Verified 03/30/22 11:28 - Social History Does the pt smoke?: No Smoking Status: Never smoker Does the pt drink ETOH?: Yes Does the pt have substance abuse?: No - Immunizations Immunizations are current?: Yes - POLST Patient has POLST: No PD ED PE NORMAL - Vitals Vital signs reviewed: Yes - General General: Alert and oriented X 3, Other - HEENT HEENT: Atraumatic - Neck Neck: Supple, no meningeal sign - Cardiac Cardiac: RRR, No gallop - Respiratory Respiratory: No respiratory distress, Clear bilaterally - Abdomen Abdomen: Normal bowel sounds, Soft, Non tender - Male Male : Deferred - Rectal Rectal: Deferred - Derm Derm: Normal color - Extremities Extremities: No deformity - Neuro Neuro: Alert and oriented X 3, operations recruiter 2-12 intact, No motor deficit, Normal speech Results - Vitals Vitals: Vital Signs - 24 hr 05/10/22 05/11/22 05/11/22 23:36 00:06 01:08 Temperature 36.4 C L Heart Rate 69 67 62 Respiratory 16 19 Rate Blood Pressure 122/71 124/85 H 117/76 O2 Saturation 95 96 97 If not protocol 2 : Oxygen Flow, liters/minute Oxygen O2 Source Nasal cannula - Labs Labs: Laboratory Tests 05/10/22 05/10/22 05/11/22 23:40 23:40 00:00 WBC 10.0 RBC 5.41 Hgb 15.9 Hct 47.6 MCV 88.0 MCH 29.4 MCHC 33.4 RDW 12.2 Plt Count 247 MPV 8.9 Neut # (Auto) 7.1 H Lymph # (Auto) 1.9 [place] # (Auto) 0.7 Eos # (Auto) 0.3 Baso # (Auto) 0.0 Absolute Nucleated RBC 0.00 Nucleated RBC % 0.0 Sodium 132 L Potassium 3.9 Chloride 98 L Carbon Dioxide 24 Anion Gap 10.0 BUN 17 Creatinine 1.2 Estimated GFR (MDRD) 64 L Glucose 138 H Calcium 8.8 Total Bilirubin 0.9 AST 33 ALT 45 Alkaline Phosphatase 47 Total Protein 7.7 Albumin 4.4 Globulin 3.3 Albumin/Globulin Ratio 1.3 Lipase 39 Urine Color YELLOW Urine Clarity CLEAR Urine pH 7.0 Ur Specific [place] 1.015 Urine Protein NEGATIVE Urine Glucose (UA) NEGATIVE Urine Ketones NEGATIVE Urine Occult Blood LARGE H Urine Nitrite NEGATIVE Urine Bilirubin NEGATIVE Urine Urobilinogen 0.2 (NORMAL) Ur Leukocyte Esterase NEGATIVE Urine RBC TNTC H Urine WBC 0-3 Ur Squamous Epith Cells RARE Squamous Amorphous Sediment Few Urine Bacteria Rare Ur Microscopic Review INDICATED Urine Culture Comments NOT INDICATED PD Medical Decision Making - ED course Complexity details: reviewed old records, reviewed results, d/w patient, d/w family Reviewed Lab Results: Patient's renal function is unchanged from baseline. Urine analysis negative for indications of infection but positive for indications of blood consistent with known history of kidney stone. Social Determinants of Health: None Drug Therapy Requiring Monitoring for Toxicity: IV narcotics Procedural Risk Factors Specific to Patient: None ED course: Patient 52-year-old male presenting to the emergency department with right-sided flank pain with associated nausea vomiting in setting of known history of right-sided 6 mm stone for which she is following with urology. Afebrile, he medically stable on arrival to the emergency department. IV access was obtained and he was given medication for pain control including IV narcotics and a single dose of Toradol. Labs obtained demonstrated normal renal function. Urine analysis negative for indications of infection. CT of the abdomen pelvis does show a 4 mm right-sided stone with associated hydronephrosis. On reevaluation patient found to be resting much more comfortably. Will discharge at this time with medication for pain control. Unfortunately he reports an intolerance to nonsteroidal anti-inflammatory medications although he did tolerate a dose of Toradol here in the emergency department without difficulty. I will discharge with course Percocet and ondansetron. I will encourage him to follow-up carefully with his urologist. Otherwise clear return precautions given prior to discharge. Departure - Departure Disposition: 01 Home, Self Care Clinical Impression: Kidney stone Instructions: ED Stone Renal W Colic Prescriptions: Oxycodone HCl/Acetaminophen [Percocet 5-325 mg Tablet] 1 - 2 each PO Q6H PRN #14 tablet PRN Reason: pain Ondansetron Odt [Zofran] 4 mg TL Q6H PRN #10 tablet PRN Reason: Nausea / Vomiting Comments: Prescription sent to [facility] in [place]. Please follow-up with your urologist as soon as possible. If it anytime you have new or worsening symptoms please not hesitate to return.
[2022-05-11 01:39] VITALS: BP 119/82
== END 2022-05-11 01:45 | disposition home or self-care (01) ==
LOC: ED 23:30
DX: N13.2 Hydronephrosis with renal and ureteral calculous obstruction (principal); R31.9 Hematuria, unspecified
CPT/HCPCS: 36415; 74177; 80053; 81001; 83690; 85025; 96374; 96375; 99284; J1170; Q9967; 81003; 87086

== ENCOUNTER 2022-07-13 07:16 | Outpatient (CLI) | payer OTHER ==
[2022-07-13 12:14] LABS: BASOPHILS # (AUTO) 0.1 10^3/uL (0.0-0.1); BASOPHILS % (AUTO) 0.7 %; EOSINOPHILS # (AUTO) 0.9 10^3/uL (0.0-0.7); EOSINOPHILS % (AUTO) 12.1 %; HCT - HEMATOCRIT 51.2 % (42.0-52.0); HGB - HEMOGLOBIN 16.3 g/dL (14.0-18.0); LYMPHOCYTES # (AUTO) 2.2 10^3/uL (1.5-3.5); LYMPHOCYTES % (AUTO) 29.9 %; MEAN CORPUSCULAR HEMOGLOBIN 28.8 pg (27.0-31.0); MEAN CORPUSCULAR HGB CONC 31.8 g/dL (32.0-36.0); MEAN CORPUSCULAR VOLUME 90.5 fL (80.0-94.0); MONOCYTES # (AUTO) 0.7 10^3/uL (0.0-1.0); MONOCYTES % (AUTO) 9.5 %; NEUTROPHILS # (AUTO) 3.4 10^3/uL (1.5-6.6); NEUTROPHILS % (AUTO) 46.3 %; PLT - PLATELET COUNT 293 10^3/uL (130-450); RED BLOOD COUNT 5.66 10^6/uL (4.70-6.10); RED CELL DISTRIBUTION WIDTH 11.9 % (12.0-15.0); WHITE BLOOD COUNT 7.3 x10^3/uL (4.8-10.8)
[2022-07-13 13:26] LABS: ALBUMIN 4.1 g/dL (3.2-5.5); ALBUMIN/GLOBULIN RATIO 1.2 (1.0-2.2); ALKALINE PHOSPHATASE 45 IU/L (42-121); ALT ALANINE AMINOTRANSFERASE 37 IU/L (10-60); AST ASPARTATE AMINOTRANSFERASE 26 IU/L (10-42); BILIRUBIN,TOTAL 0.6 mg/dL (0.2-1.0); BUN - BLOOD UREA NITROGEN 17 mg/dL (6-20); CALCIUM 9.1 mg/dL (8.5-10.3); CARBON DIOXIDE - CO2 26 mmol/L (21-32); CHLORIDE 108 mmol/L (101-111); CHOL/HDL RATIO 4.1 (<5.0); CHOLESTEROL 216 mg/dL; GFR - MDRD 78 (>89); GLUCOSE 152 mg/dL (70-100); HDL CHOLESTEROL 53 mg/dL; LDL CHOLESTEROL,CALCULATED 140 mg/dL; LDL CHOLESTEROL,DIRECT 149 mg/dL; LDL/HDL RATIO 2.6 (<3.6); POTASSIUM 4.5 mmol/L (3.5-5.0); SODIUM 138 mmol/L (135-145); TOTAL PROTEIN 7.6 g/dL (6.7-8.2); TRIGLYCERIDES 114 mg/dL; VLDL CHOLESTEROL 23 mg/dL
[2022-07-13 13:52] LABS: ESTIMATED AVERAGE GLUCOSE 120 mg/dL (70-100); HEMOGLOBIN A1c% 5.8 % (4.27-6.07)
== END 2022-07-13 07:17 | disposition home or self-care (01) ==
LOC: LAB.N 07:16
PROVIDERS: ATTEND Internal Medicine
DX: E88.81 Metabolic syndrome and other insulin resistance (principal); E78.1 Pure hyperglyceridemia; K76.0 Fatty (change of) liver, not elsewhere classified
CPT/HCPCS: 36415; 80053; 80061; 83036; 83721; 85025

== ENCOUNTER 2022-07-16 15:03 | Outpatient (CLI) | payer OTHER ==
--- NOTE | 2022-07-16 16:53 | Ultrasound Report ---
PROCEDURE: Retroperitoneal INDICATIONS: RIGHT URETERAL CALCULUS TECHNIQUE: Real-time scanning was performed of the retroperitoneal organs, with image documentation. COMPARISON: None. FINDINGS: Kidneys: Kidneys are normal in size. Right kidney measures 12.1 cm long; left kidney measures 11.5 cm long. Right renal cortical thickness is 1.8 cm; left renal cortical thickness is 1.9 cm. No bin d masses, hydronephrosis, or nephrolithiasis. Pancreas: Visualized portions of the pancreas are sonographically normal. Aorta: Visualized aorta is normal in caliber at 3 cm or less. Iliac arteries: Proximal common iliac arteries are normal in caliber at 2.5 cm or less. IVC: Intrahepatic inferior vena cava is patent. Bladder: Pre-void bladder volume is 122 mL. Post-void residual is 2 mL. Pre-void images demonstrat e no intraluminal masses or stones. On pre-void images, both ureteral jets are noted with color Dopp ler interrogation. (Of note, ureteral jets may not be detectable in up to 25% of cases due to insuff icient differences in specific gravity between ureteral and bladder urine). Miscellaneous: No free abdominal fluid. IMPRESSION: Normal renal ultrasound. No nephrolithiasis on today's exam. Reviewed by: Andriy Serrano on 07/16/2022 4:51 PM PDT Approved by: Andriy Serrano on 07/16/2022 4:51 PM PDT Station ID: [id number]
== END 2022-07-16 15:04 | disposition home or self-care (01) ==
LOC: DI 15:03
PROVIDERS: ATTEND Urology
DX: N20.1 Calculus of ureter (principal)

== ENCOUNTER 2022-08-06 07:15 | Outpatient (CLI) | payer OTHER ==
[2022-08-06 12:08] LABS: ALBUMIN 4.1 g/dL (3.2-5.5); ALBUMIN/GLOBULIN RATIO 1.2 (1.0-2.2); BILIRUBIN,TOTAL 0.6 mg/dL (0.2-1.0); CALCIUM 8.7 mg/dL (8.5-10.3); CREATININE 1.1 mg/dL (0.6-1.2); POTASSIUM 4.4 mmol/L (3.5-5.0); TOTAL PROTEIN 7.5 g/dL (6.7-8.2); URIC ACID 6.8 mg/dL (2.6-7.2)
== END 2022-08-06 07:16 | disposition home or self-care (01) ==
LOC: LAB.N 07:15
PROVIDERS: ATTEND Urology
DX: Z87.442 Personal history of urinary calculi (principal)
CPT/HCPCS: 36415; 80053; 84550

== ENCOUNTER 2022-08-21 15:13 | Outpatient (CLI) | payer OTHER ==
--- NOTE | 2022-08-21 16:06 | XRAY Report ---
PROCEDURE: Chest 2 View X-Ray INDICATIONS: PRE OP EVAL TECHNIQUE: 2 views of the chest were acquired. COMPARISON: Chest x-ray 04/11/2021 FINDINGS: Surgical changes and devices: Cholecystectomy clips. Lungs and pleura: No pleural effusions or pneumothorax. Lungs are clear. Mediastinum: Mediastinal contours appear normal. Heart size is normal. Bones and chest wall: No suspicious bony lesions. Overlying soft tissues appear unremarkable. IMPRESSION: No acute pulmonary process. Reviewed by: Bere Griffin MD on 08/21/2022 4:05 PM PDT Approved by: Bere Griffin MD on 08/21/2022 4:05 PM PDT Station ID: [id number]
== END 2022-08-21 15:14 | disposition home or self-care (01) ==
LOC: DI 15:13
PROVIDERS: ATTEND Physician Assistant Medical
DX: Z01.818 Encounter for other preprocedural examination (principal); E66.01 Morbid (severe) obesity due to excess calories
CPT/HCPCS: 93005

== ENCOUNTER 2022-08-24 07:05 | Outpatient (CLI) | payer OTHER ==
[2022-08-24 12:11] LABS: HCT - HEMATOCRIT 49.4 % (42.0-52.0); HGB - HEMOGLOBIN 16.3 g/dL (14.0-18.0); MEAN CORPUSCULAR HEMOGLOBIN 29.5 pg (27.0-31.0); MEAN CORPUSCULAR VOLUME 89.3 fL (80.0-94.0); RED BLOOD COUNT 5.53 10^6/uL (4.70-6.10); RED CELL DISTRIBUTION WIDTH 12.5 % (12.0-15.0)
[2022-08-24 12:39] LABS: THYROID STIMULATING HORMONE 1.4 uIU/mL (0.34-5.60)
[2022-08-24 12:47] LABS: FOLATE 13.33 ng/mL (5.90 - >24.8)
[2022-08-24 12:57] LABS: BASOPHILS # (AUTO) 0.1 10^3/uL (0.0-0.1); BASOPHILS % (AUTO) 0.7 %; EOSINOPHILS # (AUTO) 0.6 10^3/uL (0.0-0.7); EOSINOPHILS % (AUTO) 8.3 %; HCT - HEMATOCRIT 49.2 % (42.0-52.0); HGB - HEMOGLOBIN 16.1 g/dL (14.0-18.0); LYMPHOCYTES # (AUTO) 2.2 10^3/uL (1.5-3.5); LYMPHOCYTES % (AUTO) 30.6 %; MEAN CORPUSCULAR HEMOGLOBIN 29.4 pg (27.0-31.0); MEAN CORPUSCULAR HGB CONC 32.7 g/dL (32.0-36.0); MEAN CORPUSCULAR VOLUME 89.8 fL (80.0-94.0); MEAN PLATELET VOLUME 8.9 fL (7.4-11.4); MONOCYTES # (AUTO) 0.6 10^3/uL (0.0-1.0); MONOCYTES % (AUTO) 8.5 %; NEUTROPHILS # (AUTO) 3.7 10^3/uL (1.5-6.6); NEUTROPHILS % (AUTO) 51.3 %; PLT - PLATELET COUNT 270 10^3/uL (130-450); RED BLOOD COUNT 5.48 10^6/uL (4.70-6.10); RED CELL DISTRIBUTION WIDTH 12.6 % (12.0-15.0); WHITE BLOOD COUNT 7.3 x10^3/uL (4.8-10.8)
[2022-08-24 13:40] LABS: ESTIMATED AVERAGE GLUCOSE 117 mg/dL (70-100); HEMOGLOBIN A1c% 5.7 % (4.27-6.07)
[2022-08-24 14:04] LABS: ALBUMIN/GLOBULIN RATIO 1.2 (1.0-2.2); CALCIUM 8.6 mg/dL (8.5-10.3)
[2022-08-24 14:05] LABS: BILIRUBIN,TOTAL 0.8 mg/dL (0.2-1.0); CREATININE 0.9 mg/dL (0.6-1.2); TOTAL PROTEIN 7.3 g/dL (6.7-8.2)
[2022-08-27 11:10] LABS: HDL-P (TOTAL) 47.5 umol/L (>=30.5); LDL SIZE 21.6 nm (>20.5); LDL-P 1718 nmol/L (<1000); LP-INSULIN RESISTANCE SCORE 65 (<=45); SMALL LDL-P 605 nmol/L (<=527)
== END 2022-08-24 07:06 | disposition home or self-care (01) ==
LOC: LAB.N 07:05
PROVIDERS: ATTEND Physician Assistant Medical
DX: E66.01 Morbid (severe) obesity due to excess calories (principal)
CPT/HCPCS: 36415; 80053; 82306; 82607; 82746; 83036; 83540; 83704; 83921; 83970; 84134; 84443; 84466; 85025; 85027

== ENCOUNTER 2022-12-02 08:00 | Outpatient (CLI) | payer OTHER ==
[2022-12-02 11:53] LABS: BASOPHILS # (AUTO) 0.1 10^3/uL (0.0-0.1); BASOPHILS % (AUTO) 0.7 %; EOSINOPHILS # (AUTO) 0.5 10^3/uL (0.0-0.7); EOSINOPHILS % (AUTO) 7.1 %; HCT - HEMATOCRIT 49.5 % (42.0-52.0); HGB - HEMOGLOBIN 16.3 g/dL (14.0-18.0); LYMPHOCYTES # (AUTO) 1.7 10^3/uL (1.5-3.5); LYMPHOCYTES % (AUTO) 23.3 %; MEAN CORPUSCULAR HEMOGLOBIN 29.3 pg (27.0-31.0); MEAN CORPUSCULAR HGB CONC 32.9 g/dL (32.0-36.0); MEAN PLATELET VOLUME 9.4 fL (7.4-11.4); MONOCYTES # (AUTO) 0.7 10^3/uL (0.0-1.0); MONOCYTES % (AUTO) 9.5 %; NEUTROPHILS # (AUTO) 4.3 10^3/uL (1.5-6.6); NEUTROPHILS % (AUTO) 58.7 %; PLT - PLATELET COUNT 260 10^3/uL (130-450); RED BLOOD COUNT 5.56 10^6/uL (4.70-6.10); RED CELL DISTRIBUTION WIDTH 12.1 % (12.0-15.0); WHITE BLOOD COUNT 7.4 x10^3/uL (4.8-10.8)
[2022-12-02 13:02] LABS: THYROID STIMULATING HORMONE 1.72 uIU/mL (0.34-5.60)
[2022-12-02 13:03] LABS: ALBUMIN 4.5 g/dL (3.2-5.5); ALBUMIN/GLOBULIN RATIO 1.6 (1.0-2.2); BILIRUBIN,TOTAL 0.5 mg/dL (0.2-1.0); CALCIUM 9.5 mg/dL (8.5-10.3); CREATININE 1.1 mg/dL (0.6-1.3); POTASSIUM 3.8 mmol/L (3.5-4.5); TOTAL PROTEIN 7.4 g/dL (6.4-8.9)
[2022-12-02 13:05] LABS: CHOL/HDL RATIO 4.3 (<5.0); CHOLESTEROL 217 mg/dL; HDL CHOLESTEROL 50 mg/dL; LDL CHOLESTEROL,CALCULATED 136 mg/dL; LDL/HDL RATIO 2.7 (<3.6); TRIGLYCERIDES 156 mg/dL (48-352); VLDL CHOLESTEROL 31 mg/dL
[2022-12-02 13:08] LABS: FERRITIN 771.6 ng/mL (23.9-336.2)
[2022-12-02 13:15] LABS: ESTIMATED AVERAGE GLUCOSE 117 mg/dL (70-100); HEMOGLOBIN A1c% 5.7 % (4.27-6.07)
[2022-12-05 07:09] LABS: HDL-P (TOTAL) 43.8 umol/L (>=30.5); LDL SIZE 21.8 nm (>20.5); LDL-P 1546 nmol/L (<1000); LP-INSULIN RESISTANCE SCORE 66 (<=45); SMALL LDL-P 322 nmol/L (<=527)
== END 2022-12-02 23:59 | disposition home or self-care (01) ==
LOC: LAB.N 08:00
PROVIDERS: ATTEND Physician Assistant Medical
DX: Z01.812 Encounter for preprocedural laboratory examination (principal); E66.01 Morbid (severe) obesity due to excess calories; G47.33 Obstructive sleep apnea (adult) (pediatric); N20.0 Calculus of kidney; K76.0 Fatty (change of) liver, not elsewhere classified; E78.1 Pure hyperglyceridemia; R73.01 Impaired fasting glucose; N20.9 Urinary calculus, unspecified
CPT/HCPCS: 36415; 80053; 80061; 82306; 82607; 82728; 82746; 83036; 83540; 83704; 83721; 83921; 83970; 84425; 84443; 84466; 85025

== ENCOUNTER 2023-02-09 10:43 | Outpatient (CLI) | payer OTHER ==
[2023-02-09 17:59] LABS: BILIRUBIN,URINE NEGATIVE (NEGATIVE); GLUCOSE, URINE (UA) NEGATIVE (NEGATIVE); KETONES,URINE (UA) NEGATIVE (NEGATIVE); LEUKOCYTE ESTERASE, URINE NEGATIVE (NEGATIVE); NITRITE,URINE NEGATIVE (NEGATIVE); OCCULT BLOOD,URINE NEGATIVE (NEGATIVE); PROTEIN,URINE NEGATIVE (NEGATIVE); UROBILINOGEN,URINE 0.2 (NORMAL) E.U./dL (NORMAL)
[2023-02-09 18:05] LABS: AMORPHOUS SEDIMENT,UR Marked /LPF; BACTERIA,URINE Few /HPF (None Seen); CLARITY,URINE CLOUDY (CLEAR); RBC,URINE None Seen /HPF (0-5); SQUAMOUS EPITHELIAL CELL,UR FEW Squamous (<= Few); WBC,URINE 0-3 /HPF (0-3)
[2023-02-09 18:08] LABS: ALBUMIN 4.8 g/dL (3.2-5.5); CALCIUM 10.6 mg/dL (8.5-10.3); CREATININE 1.1 mg/dL (0.6-1.3); PHOSPHORUS 2.6 mg/dL (2.5-5.0); POTASSIUM 4.2 mmol/L (3.5-4.5); URIC ACID 4.8 mg/dL (4.4-7.6)
== END 2023-02-09 10:44 | disposition home or self-care (01) ==
LOC: LAB.N 10:43
PROVIDERS: ATTEND Internal Medicine Nephrology
DX: N20.0 Calculus of kidney (principal)
CPT/HCPCS: 36415; 80048; 81001; 81003; 82040; 82306; 82652; 83735; 83970; 84100; 84550; 87086

== ENCOUNTER 2023-03-22 07:27 | Outpatient (CLI) | payer OTHER ==
[2023-03-22 12:42] LABS: BASOPHILS # (AUTO) 0.1 10^3/uL (0.0-0.1); BASOPHILS % (AUTO) 0.5 %; EOSINOPHILS # (AUTO) 0.5 10^3/uL (0.0-0.7); EOSINOPHILS % (AUTO) 3.8 %; HCT - HEMATOCRIT 48.7 % (42.0-52.0); HGB - HEMOGLOBIN 15.5 g/dL (14.0-18.0); LYMPHOCYTES # (AUTO) 1.6 10^3/uL (1.5-3.5); LYMPHOCYTES % (AUTO) 11.5 %; MEAN CORPUSCULAR HEMOGLOBIN 28.7 pg (27.0-31.0); MEAN CORPUSCULAR HGB CONC 31.8 g/dL (32.0-36.0); MONOCYTES # (AUTO) 1.3 10^3/uL (0.0-1.0); MONOCYTES % (AUTO) 9.4 %; PLT - PLATELET COUNT 272 10^3/uL (130-450); RED BLOOD COUNT 5.41 10^6/uL (4.70-6.10); RED CELL DISTRIBUTION WIDTH 12.8 % (12.0-15.0); WHITE BLOOD COUNT 13.5 x10^3/uL (4.8-10.8)
[2023-03-22 13:26] LABS: CHOL/HDL RATIO 3.4 (<5.0); CHOLESTEROL 191 mg/dL; HDL CHOLESTEROL 56 mg/dL; LDL CHOLESTEROL,CALCULATED 117 mg/dL; LDL/HDL RATIO 2.1 (<3.6); TRIGLYCERIDES 90 mg/dL (48-352); VLDL CHOLESTEROL 18 mg/dL
[2023-03-22 14:27] LABS: ESTIMATED AVERAGE GLUCOSE 111 mg/dL (70-100); HEMOGLOBIN A1c% 5.5 % (4.27-6.07)
== END 2023-03-22 07:28 | disposition home or self-care (01) ==
LOC: LAB.N 07:27
PROVIDERS: ATTEND Internal Medicine
DX: E78.1 Pure hyperglyceridemia (principal); K76.0 Fatty (change of) liver, not elsewhere classified; Z79.899 Other long term (current) drug therapy; E88.810 Metabolic syndrome
CPT/HCPCS: 36415; 80061; 83036; 83721; 85025

== ENCOUNTER 2023-03-22 12:57 | Emergency (ER) | payer OTHER ==
[2023-03-22] MEDS ORDERED: HYDROmorphone 1 MG/ML CARPUJECT IVP STA (14:23)
--- NOTE | 2023-03-22 14:25 | ED Physician Documentation ---
PD HPI ABD PAIN - Stated complaint Stated Complaint: MALE - Chief complaint Chief Complaint: Abd Pain - History obtained from History obtained from: Patient - Additional information Additional information: 53-year-old gentleman presents to the emergency department today by private vehicle for chief complaint of rectal pain that been going on for a week. Now intolerable. Hurts all the time but especially bad if he has a bowel movement. He has had some spots of blood, but very small amounts. Colonoscopy done April 2020. He had a single polyp and mild diverticulosis. PD PAST MEDICAL HISTORY - Past Medical History Cardiovascular: High cholesterol Respiratory: None Neuro: None Endocrine/Autoimmune: None GI: Ulcers : Kidney stones HEENT: None Psych: None Derm: None - Past Surgical History Past Surgical History: Yes General: Cholecystectomy - Present Medications Home Medications: Ambulatory Orders Medication Instructions Recorded Confirmed Amox/Clav 875/125 [Augmentin] 1 each PO Q12H #20 tablet 03/22/23 Fenofibrate,Micronized 200 mg PO DAILY 03/22/23 03/22/23 [Fenofibrate] Meloxicam 7.5 mg PO DAILY 03/22/23 03/22/23 Omeprazole Magnesium 20 mg PO BID 03/22/23 03/22/23 Oxycodone HCl/Acetaminophen 1 - 2 each PO Q6H PRN #20 tablet 03/22/23 [Percocet 5-325 mg Tablet] metFORMIN [Glucophage] 1,500 mg PO BIDWM 03/22/23 03/22/23 polyethylene glycoL 3350(BULK) 17 gm PO DAILY PRN #1 each 03/22/23 [Miralax] - Allergies Allergies/Adverse Reactions: Allergies Allergy/AdvReac Type Severity Reaction Status Date / Time ibuprofen AdvReac Emesis Verified 03/22/23 13:30 - Social History Does the pt smoke?: No Smoking Status: Never smoker Does the pt drink ETOH?: Yes Does the pt have substance abuse?: No - Immunizations Immunizations are current?: Yes - POLST Patient has POLST: No PD ED PE NORMAL - Vitals Vital signs reviewed: Yes - General General: Alert and oriented X 3, Other (Appears uncomfortable) - Abdomen Abdomen: Normal bowel sounds, Soft, Non tender - Rectal Rectal: Other (External rectal examination normal with the exception of skin tags. He has a sensation there is a sensation of fullness and distinct tenderness in the right superolateral area on rectal exam. No gross blood.) - Neuro Neuro: Alert and oriented X 3 Results - Vitals Vitals: Vital Signs - 24 hr 03/22/23 13:22 Temperature 36.8 C Heart Rate 99 Respiratory 18 Rate Blood Pressure 152/88 H O2 Saturation 96 Oxygen O2 Source Room air - Labs Labs: Laboratory Tests 03/22/23 03/22/23 14:30 14:30 WBC 15.1 H RBC 5.39 Hgb 15.4 Hct 47.4 MCV 87.9 MCH 28.6 MCHC 32.5 RDW 12.7 Plt Count 278 MPV 8.6 Neut # (Auto) 10.9 H Lymph # (Auto) 2.3 [place] # (Auto) 1.3 H Eos # (Auto) 0.4 Baso # (Auto) 0.1 Absolute Nucleated RBC 0.00 Nucleated RBC % 0.0 Sodium 136 Potassium 4.1 Chloride 103 Carbon Dioxide 26 Anion Gap 7.0 BUN 16 Creatinine 0.9 Estimated GFR (MDRD) 88 L Glucose 97 Calcium 10.2 - Rads (name of study) CT pelvis with IV contrast demonstrating a 3 x 2.2 x 2.5 cm phlegmon versus abscess in the perirectal area. Relevant Findings:: Final report received, EMP independent interpretation of test PD Medical Decision Making - ED course ED course: 53-year-old gentleman presents with severe rectal pain and for me on my examination I suspect he has a high rectal abscess. On personal review of pelvic CT with IV contrast this is confirmed and I discussed the case by phone with Dr. Mendiola who was actually scheduled to see him for this problem on Wednesday. She recommends a CBC Wednesday. MiraLAX. Augmentin. A low residue diet. And follow-up as scheduled with close return precautions. Departure - Departure Disposition: Home, Self Care Clinical Impression: Rectal abscess Condition: Good Record reviewed to determine appropriate education?: Yes Instructions: Diet Low Residue, ED Nguyen Anal Abscess Abx Only Follow-Up: Lawrence Mendiola MD [Provider Admit Priv/Credential] - (Wednesday as scheduled) Prescriptions: Amox/Clav 875/125 [Augmentin] 1 each PO Q12H #20 tablet polyethylene glycoL 3350(BULK) [Miralax] 17 gm PO DAILY PRN #1 each PRN Reason: Constipation Oxycodone HCl/Acetaminophen [Percocet 5-325 mg Tablet] 1 - 2 each PO Q6H PRN #20 tablet PRN Reason: pain Comments: You were seen today for the pain related to a rectal abscess. The surgeon, Dr. Mendiola thinks it will resolve with antibiotics. You should plan to still follow- up with her on Wednesday as scheduled. Wednesday morning please get a repeat CBC done. Take the handwritten order for CBC to the hospital lab inside the main hospital building Wednesday and get your blood drawn. She will review that at the visit on Wednesday afternoon. Till then a low residue diet, see the attached handout, antibiotics and painkillers all of which I sent to [facility] in [place] as well as a prescription laxative. I am prescribing a short course of narcotic pain medication for you. These are potentially dangerous and addictive medications that should be used carefully. These medications may constipate you. Take an [id number] stool softener (docusate) twice daily with plenty of water while taking these medications. If you go 24 hours without a bowel movement, take [id number] miralax, per package instructions. Do not drink or drive while taking these medications. If you received narcotic or sedating medications while in the emergency department, do not drive for 24 hours. Store this medication in a safe, secure place and out of reach of children. It is a violation of federal law to give or sell this medication to another person or to use in a manner other than prescribed. The ED will not refill narcotic prescriptions, including prescriptions lost or stolen. To dispose of unwanted medications: 1. [facility] provides a drop box for medication in pill form only (no liquids) 8:00 am to 4:30 p.m. Wednesday-Wednesday in the lobby of the [facility], [address] [place] [address]. Empty pills into ziplock bag before disposal. Call [phone] for information. 2.[employer] is a free service available to all [facility] residents. Go to [email or web address] Note that many narcotic pain relievers also contain Tylenol/acetaminophen. Please ensure that your total dose of acetaminophen from all sources does not exceed 3 g (3000 mg) per day. Forms: PCP List, Activity restrictions
[2023-03-22 14:41] LABS: BASOPHILS # (AUTO) 0.1 10^3/uL (0.0-0.1); BASOPHILS % (AUTO) 0.5 %; EOSINOPHILS # (AUTO) 0.4 10^3/uL (0.0-0.7); EOSINOPHILS % (AUTO) 2.7 %; HCT - HEMATOCRIT 47.4 % (42.0-52.0); HGB - HEMOGLOBIN 15.4 g/dL (14.0-18.0); LYMPHOCYTES # (AUTO) 2.3 10^3/uL (1.5-3.5); LYMPHOCYTES % (AUTO) 15.1 %; MEAN CORPUSCULAR HEMOGLOBIN 28.6 pg (27.0-31.0); MEAN CORPUSCULAR HGB CONC 32.5 g/dL (32.0-36.0); MEAN CORPUSCULAR VOLUME 87.9 fL (80.0-94.0); MEAN PLATELET VOLUME 8.6 fL (7.4-11.4); MONOCYTES # (AUTO) 1.3 10^3/uL (0.0-1.0); MONOCYTES % (AUTO) 8.8 %; NEUTROPHILS # (AUTO) 10.9 10^3/uL (1.5-6.6); NEUTROPHILS % (AUTO) 72.4 %; PLT - PLATELET COUNT 278 10^3/uL (130-450); RED BLOOD COUNT 5.39 10^6/uL (4.70-6.10); RED CELL DISTRIBUTION WIDTH 12.7 % (12.0-15.0); WHITE BLOOD COUNT 15.1 x10^3/uL (4.8-10.8)
[2023-03-22 14:57] LABS: CALCIUM 10.2 mg/dL (8.5-10.3); CREATININE 0.9 mg/dL (0.6-1.3); POTASSIUM 4.1 mmol/L (3.5-4.5)
[2023-03-22] MEDS ORDERED: iohexoL-300 100 ML VIAL IVP ONE (15:18)
[2023-03-22] MEDS ORDERED: AMOX/CLAV 875 MG/125 MG TABLET PO STA (15:43)
--- NOTE | 2023-03-22 15:50 | CT Report ---
PROCEDURE: PELVIS W INDICATIONS: Rectal pain, ?abscess CONTRAST: 100ml omni 300 TECHNIQUE: After the administration of intravenous contrast, a CT scan of the pelvis was performed. Images were recorded and evaluated at appropriate window settings. Reformats: axial MIP of the chest, coronal an d sagittal. For radiation dose reduction, the following was used: automated exposure control, adjustm ent of mA and/or kV according to patient size. COMPARISON: CT abdomen and pelvis on May 11, 2022 FINDINGS: Image quality: Excellent. Bowel and peritoneum: No bowel distension. No pathologic free fluid. Normal appendix (2/15). Small ri m-enhancing perirectal phlegmon versus early abscess measuring 3 x 2.2 x 2.5 cm (2/44, 5/46). No CT e vidence of a fistula. This is new compared to prior CT dated May 11, 2022. Vessels: No infrarenal aortic aneurysm. Reproductive organs: Unremarkable. Bladder: No abnormal wall thickening, accounting for underdistention. Pelvic lymph nodes: No pelvic adenopathy by size criteria. Bones: No aggressive osseous abnormality. No acute fracture. Other: Tiny fat-containing umbilical hernia. IMPRESSION: Small rim-enhancing perirectal phlegmon versus early abscess measuring 3 x 2.2 x [address] eviden ce of a fistula. This is new compared to prior CT dated May 11, 2022. Reviewed by: Chrystal Mancuso MD on 03/22/2023 3:49 PM PST Approved by: Chrystal Mancuso MD on 03/22/2023 3:49 PM PST Station ID: [id number]
[2023-03-22 16:14] VITALS: BP 129/82; O2SAT 97
== END 2023-03-22 16:38 | disposition home or self-care (01) ==
LOC: ED 12:57
DX: K61.1 Rectal abscess (principal); E78.1 Pure hyperglyceridemia; K76.0 Fatty (change of) liver, not elsewhere classified; Z79.899 Other long term (current) drug therapy; E88.810 Metabolic syndrome
CPT/HCPCS: 36415; 72193; 80048; 80061; 83036; 85025; 96374; 99284; A9270; J1170; Q9967; 83721

== ENCOUNTER 2023-03-26 06:52 | Outpatient (CLI) | payer OTHER ==
[2023-03-26 07:21] LABS: BASOPHILS # (AUTO) 0.1 10^3/uL (0.0-0.1); BASOPHILS % (AUTO) 1.1 %; EOSINOPHILS # (AUTO) 0.8 10^3/uL (0.0-0.7); EOSINOPHILS % (AUTO) 10.6 %; HGB - HEMOGLOBIN 15.3 g/dL (14.0-18.0); LYMPHOCYTES % (AUTO) 26.7 %; MEAN CORPUSCULAR HEMOGLOBIN 28.5 pg (27.0-31.0); MEAN CORPUSCULAR HGB CONC 31.9 g/dL (32.0-36.0); MEAN CORPUSCULAR VOLUME 89.4 fL (80.0-94.0); MEAN PLATELET VOLUME 8.5 fL (7.4-11.4); MONOCYTES # (AUTO) 0.9 10^3/uL (0.0-1.0); MONOCYTES % (AUTO) 12.2 %; NEUTROPHILS # (AUTO) 3.6 10^3/uL (1.5-6.6); PLT - PLATELET COUNT 323 10^3/uL (130-450); RED BLOOD COUNT 5.37 10^6/uL (4.70-6.10); RED CELL DISTRIBUTION WIDTH 12.1 % (12.0-15.0); WHITE BLOOD COUNT 7.4 x10^3/uL (4.8-10.8)
== END 2023-03-26 06:53 | disposition home or self-care (01) ==
LOC: LAB 06:52
PROVIDERS: ATTEND Surgery
DX: K61.1 Rectal abscess (principal)
CPT/HCPCS: 36415; 85025

== ENCOUNTER 2023-04-05 07:25 | Outpatient (CLI) | payer OTHER ==
[2023-04-05 12:42] LABS: BILIRUBIN,URINE NEGATIVE (NEGATIVE); GLUCOSE, URINE (UA) NEGATIVE (NEGATIVE); KETONES,URINE (UA) NEGATIVE (NEGATIVE); LEUKOCYTE ESTERASE, URINE NEGATIVE (NEGATIVE); NITRITE,URINE NEGATIVE (NEGATIVE); OCCULT BLOOD,URINE NEGATIVE (NEGATIVE); PROTEIN,URINE NEGATIVE (NEGATIVE); UROBILINOGEN,URINE 0.2 (NORMAL) E.U./dL (NORMAL)
[2023-04-05 12:53] LABS: AMORPHOUS SEDIMENT,UR Marked /LPF; BACTERIA,URINE Rare /HPF (None Seen); CLARITY,URINE SL. CLOUDY (CLEAR); RBC,URINE 0-5 /HPF (0-5); SQUAMOUS EPITHELIAL CELL,UR RARE Squamous (<= Few); WBC,URINE 0-3 /HPF (0-3)
[2023-04-05 13:21] LABS: ALBUMIN 4.3 g/dL (3.2-5.5); BUN - BLOOD UREA NITROGEN 18 mg/dL (6-20); CALCIUM 9.5 mg/dL (8.5-10.3); CARBON DIOXIDE - CO2 25 mmol/L (21-32); CHLORIDE 108 mmol/L (101-111); CHOL/HDL RATIO 3.8 (<5.0); CHOLESTEROL 194 mg/dL; CREATININE 0.8 mg/dL (0.6-1.3); GFR - MDRD 101 (>89); GLUCOSE 112 mg/dL (74-104); HDL CHOLESTEROL 51 mg/dL; LDL CHOLESTEROL,CALCULATED 105 mg/dL; LDL/HDL RATIO 2.1 (<3.6); PHOSPHORUS 2.5 mg/dL (2.5-5.0); SODIUM 139 mmol/L (135-145); TRIGLYCERIDES 189 mg/dL (48-352); VLDL CHOLESTEROL 38 mg/dL
[2023-04-05 13:50] LABS: ESTIMATED AVERAGE GLUCOSE 117 mg/dL (70-100); HEMOGLOBIN A1c% 5.7 % (4.27-6.07)
[2023-04-07 14:08] LABS: IMMUNOGLOBULIN A (IGA) 135 mg/dL (90-386); IMMUNOGLOBULIN G (IGG) 1281 mg/dL (603-1613); IMMUNOGLOBULIN M (IGM) 39 mg/dL (20-172)
[2023-04-07 15:09] LABS: A/G RATIO 1.1 (0.7-1.7); ALBUMIN 3.6 g/dL (2.9-4.4); ALPHA-1-GLOBULIN 0.2 g/dL (0.0-0.4); ALPHA-2-GLOBULIN 0.6 g/dL (0.4-1.0); BETA GLOBULIN 1.1 g/dL (0.7-1.3); GAMMA GLOBULIN 1.4 g/dL (0.4-1.8); GLOBULIN, TOTAL 3.3 g/dL (2.2-3.9); PROTEIN TOTAL 6.9 g/dL (6.0-8.5)
== END 2023-04-05 07:26 | disposition home or self-care (01) ==
LOC: LAB.N 07:25
PROVIDERS: ATTEND Internal Medicine Nephrology
DX: E83.52 Hypercalcemia (principal); N20.0 Calculus of kidney; E78.1 Pure hyperglyceridemia; E88.810 Metabolic syndrome
CPT/HCPCS: 36415; 80048; 80061; 81001; 82040; 82306; 82397; 82652; 82784; 83036; 83721; 83735; 84100; 84155; 84165; 84550; 86334; 87086

== ENCOUNTER 2023-06-18 07:13 | Outpatient (CLI) | payer OTHER ==
[2023-06-18 11:56] LABS: BASOPHILS # (AUTO) 0.1 10^3/uL (0.0-0.1); BASOPHILS % (AUTO) 0.8 %; EOSINOPHILS # (AUTO) 0.6 10^3/uL (0.0-0.7); EOSINOPHILS % (AUTO) 7.6 %; HCT - HEMATOCRIT 50.8 % (42.0-52.0); HGB - HEMOGLOBIN 16.3 g/dL (14.0-18.0); LYMPHOCYTES % (AUTO) 27.9 %; MEAN CORPUSCULAR HEMOGLOBIN 28.7 pg (27.0-31.0); MEAN CORPUSCULAR HGB CONC 32.1 g/dL (32.0-36.0); MEAN CORPUSCULAR VOLUME 89.6 fL (80.0-94.0); MEAN PLATELET VOLUME 9.4 fL (7.4-11.4); MONOCYTES # (AUTO) 0.7 10^3/uL (0.0-1.0); MONOCYTES % (AUTO) 9.1 %; NEUTROPHILS # (AUTO) 3.9 10^3/uL (1.5-6.6); NEUTROPHILS % (AUTO) 53.8 %; PLT - PLATELET COUNT 286 10^3/uL (130-450); RED BLOOD COUNT 5.67 10^6/uL (4.70-6.10); RED CELL DISTRIBUTION WIDTH 12.8 % (12.0-15.0); WHITE BLOOD COUNT 7.2 x10^3/uL (4.8-10.8)
[2023-06-18 12:23] LABS: ALBUMIN 4.4 g/dL (3.2-5.5); ALBUMIN/GLOBULIN RATIO 1.5 (1.0-2.2); BILIRUBIN,TOTAL 0.5 mg/dL (0.2-1.0); CALCIUM 9.5 mg/dL (8.5-10.3); POTASSIUM 4.1 mmol/L (3.5-4.5); TOTAL PROTEIN 7.4 g/dL (6.4-8.9)
== END 2023-06-18 07:14 | disposition home or self-care (01) ==
LOC: LAB.N 07:13
PROVIDERS: ATTEND Surgery
DX: E66.01 Morbid (severe) obesity due to excess calories (principal); Z68.41 Body mass index [BMI] 40.0-44.9, adult
CPT/HCPCS: 36415; 80053; 85025

== ENCOUNTER 2023-06-18 16:29 | Outpatient (CLI) | payer OTHER | END 2023-06-18 16:30 | disposition home or self-care (01) | LOC: RT 16:29 | PROVIDERS: ATTEND Surgery | DX: E66.01 Morbid (severe) obesity due to excess calories (principal); Z68.41 Body mass index [BMI] 40.0-44.9, adult | CPT/HCPCS: 36415; 80053; 85025; 93005 ==

== ENCOUNTER 2023-08-13 08:36 | Outpatient (CLI) | payer OTHER ==
[2023-08-13 12:07] LABS: BASOPHILS # (AUTO) 0.1 10^3/uL (0.0-0.1); BASOPHILS % (AUTO) 1.1 %; EOSINOPHILS # (AUTO) 0.5 10^3/uL (0.0-0.7); EOSINOPHILS % (AUTO) 9.5 %; HCT - HEMATOCRIT 50.7 % (42.0-52.0); HGB - HEMOGLOBIN 16.3 g/dL (14.0-18.0); LYMPHOCYTES # (AUTO) 2.1 10^3/uL (1.5-3.5); MEAN CORPUSCULAR HEMOGLOBIN 28.4 pg (27.0-31.0); MEAN CORPUSCULAR HGB CONC 32.1 g/dL (32.0-36.0); MEAN CORPUSCULAR VOLUME 88.5 fL (80.0-94.0); MONOCYTES # (AUTO) 0.6 10^3/uL (0.0-1.0); MONOCYTES % (AUTO) 10.5 %; NEUTROPHILS # (AUTO) 2.4 10^3/uL (1.5-6.6); NEUTROPHILS % (AUTO) 42.5 %; PLT - PLATELET COUNT 249 10^3/uL (130-450); RED BLOOD COUNT 5.73 10^6/uL (4.70-6.10); RED CELL DISTRIBUTION WIDTH 13.1 % (12.0-15.0); WHITE BLOOD COUNT 5.7 x10^3/uL (4.8-10.8)
[2023-08-13 12:25] LABS: ESTIMATED AVERAGE GLUCOSE 100 mg/dL (70-100); HEMOGLOBIN A1c% 5.1 % (4.27-6.07)
[2023-08-13 12:59] LABS: % IRON SATURATION 30 % (20-50); ALBUMIN 4.6 g/dL (3.2-5.5); ALBUMIN/GLOBULIN RATIO 1.7 (1.0-2.2); ALKALINE PHOSPHATASE 43 IU/L (42-121); ALT ALANINE AMINOTRANSFERASE 36 IU/L (10-60); AST ASPARTATE AMINOTRANSFERASE 24 IU/L (10-42); BILIRUBIN,TOTAL 0.8 mg/dL (0.2-1.0); BUN - BLOOD UREA NITROGEN 14 mg/dL (6-20); CALCIUM 10.1 mg/dL (8.5-10.3); CARBON DIOXIDE - CO2 29 mmol/L (21-32); CHLORIDE 102 mmol/L (101-111); CHOL/HDL RATIO 3.5 (<5.0); CHOLESTEROL 176 mg/dL; CREATININE 0.9 mg/dL (0.6-1.3); GFR - MDRD 88 (>89); GLUCOSE 86 mg/dL (74-104); HDL CHOLESTEROL 51 mg/dL; IRON 102 ug/dL (50-212); LDL CHOLESTEROL,CALCULATED 102 mg/dL; SODIUM 139 mmol/L (135-145); TOTAL IRON BINDING CAPACITY 340 ug/dL (250-450); TOTAL PROTEIN 7.3 g/dL (6.4-8.9); TRANSFERRIN 243 mg/dL (203-362); TRIGLYCERIDES 116 mg/dL (48-352); VLDL CHOLESTEROL 23 mg/dL
[2023-08-13 13:05] LABS: FERRITIN 553.8 ng/mL (23.9-336.2)
== END 2023-08-13 08:37 | disposition home or self-care (01) ==
LOC: LAB.N 08:36
PROVIDERS: ATTEND Internal Medicine
DX: E78.1 Pure hyperglyceridemia (principal); Z98.0 Intestinal bypass and anastomosis status; R73.01 Impaired fasting glucose; G47.33 Obstructive sleep apnea (adult) (pediatric)
CPT/HCPCS: 36415; 80053; 80061; 82607; 82728; 83036; 83540; 83721; 84466; 85025

== ENCOUNTER 2023-11-22 11:04 | Outpatient (CLI) | payer OTHER ==
[2023-11-22 11:41] LABS: ALBUMIN 4.4 g/dL (3.2-5.5); CALCIUM 9.5 mg/dL (8.5-10.3); CREATININE 0.8 mg/dL (0.6-1.3); MAGNESIUM 1.8 mg/dL (1.7-2.3); PHOSPHORUS 2.7 mg/dL (2.5-5.0); POTASSIUM 4.1 mmol/L (3.5-4.5); URIC ACID 6.6 mg/dL (4.4-7.6)
[2023-11-22 12:09] LABS: BILIRUBIN,URINE NEGATIVE (NEGATIVE); GLUCOSE, URINE (UA) NEGATIVE (NEGATIVE); KETONES,URINE (UA) NEGATIVE (NEGATIVE); LEUKOCYTE ESTERASE, URINE NEGATIVE (NEGATIVE); NITRITE,URINE NEGATIVE (NEGATIVE); OCCULT BLOOD,URINE NEGATIVE (NEGATIVE); PROTEIN,URINE NEGATIVE (NEGATIVE); UROBILINOGEN,URINE 0.2 (NORMAL) E.U./dL (NORMAL)
[2023-11-22 12:20] LABS: CLARITY,URINE CLEAR (CLEAR)
== END 2023-11-22 11:05 | disposition home or self-care (01) ==
LOC: LAB 11:04
PROVIDERS: ATTEND Internal Medicine Nephrology
DX: N20.0 Calculus of kidney (principal)
CPT/HCPCS: 36415; 80048; 81001; 81003; 82040; 82306; 83735; 83970; 84100; 84550; 87086

== ENCOUNTER 2024-01-12 06:53 | Outpatient (CLI) | payer OTHER ==
[2024-01-12 07:29] LABS: BASOPHILS # (AUTO) 0.1 10^3/uL (0.0-0.1); BASOPHILS % (AUTO) 0.9 %; EOSINOPHILS # (AUTO) 0.4 10^3/uL (0.0-0.7); EOSINOPHILS % (AUTO) 6.1 %; HCT - HEMATOCRIT 51.6 % (42.0-52.0); HGB - HEMOGLOBIN 17.1 g/dL (14.0-18.0); LYMPHOCYTES # (AUTO) 1.9 10^3/uL (1.5-3.5); LYMPHOCYTES % (AUTO) 26.9 %; MEAN CORPUSCULAR HEMOGLOBIN 29.8 pg (27.0-31.0); MEAN CORPUSCULAR HGB CONC 33.1 g/dL (32.0-36.0); MEAN CORPUSCULAR VOLUME 89.9 fL (80.0-94.0); MONOCYTES # (AUTO) 0.5 10^3/uL (0.0-1.0); MONOCYTES % (AUTO) 6.9 %; NEUTROPHILS # (AUTO) 4.1 10^3/uL (1.5-6.6); NEUTROPHILS % (AUTO) 58.9 %; PLT - PLATELET COUNT 216 10^3/uL (130-450); RED BLOOD COUNT 5.74 10^6/uL (4.70-6.10); RED CELL DISTRIBUTION WIDTH 12.4 % (12.0-15.0); WHITE BLOOD COUNT 6.9 x10^3/uL (4.8-10.8)
[2024-01-12 07:39] LABS: % IRON SATURATION 41 % (20-50); ALBUMIN 4.5 g/dL (3.2-5.5); ALBUMIN/GLOBULIN RATIO 1.6 (1.0-2.2); ALKALINE PHOSPHATASE 65 IU/L (42-121); ALT ALANINE AMINOTRANSFERASE 19 IU/L (10-60); AST ASPARTATE AMINOTRANSFERASE 17 IU/L (10-42); BILIRUBIN,TOTAL 1.1 mg/dL (0.2-1.0); BUN - BLOOD UREA NITROGEN 14 mg/dL (6-20); CALCIUM 9.7 mg/dL (8.5-10.3); CARBON DIOXIDE - CO2 29 mmol/L (21-32); CHLORIDE 102 mmol/L (101-111); CHOL/HDL RATIO 4.7 (<5.0); CHOLESTEROL 261 mg/dL; CREATININE 0.8 mg/dL (0.6-1.3); GFR - MDRD 101 (>89); GLUCOSE 124 mg/dL (74-104); HDL CHOLESTEROL 56 mg/dL; IRON 137 ug/dL (50-212); LDL CHOLESTEROL,CALCULATED 180 mg/dL; LDL/HDL RATIO 3.2 (<3.6); POTASSIUM 4.4 mmol/L (3.5-4.5); SODIUM 135 mmol/L (135-145); TOTAL IRON BINDING CAPACITY 332 ug/dL (250-450); TOTAL PROTEIN 7.3 g/dL (6.4-8.9); TRANSFERRIN 237 mg/dL (203-362); TRIGLYCERIDES 127 mg/dL; VLDL CHOLESTEROL 25 mg/dL
[2024-01-12 07:57] LABS: FERRITIN 424.6 ng/mL (23.9-336.2)
[2024-01-12 09:08] LABS: ESTIMATED AVERAGE GLUCOSE 100 mg/dL (70-100); HEMOGLOBIN A1c% 5.1 % (4.27-6.07)
== END 2024-01-12 06:54 | disposition home or self-care (01) ==
LOC: LAB 06:53
DX: E78.1 Pure hyperglyceridemia (principal); R73.01 Impaired fasting glucose; E66.9 Obesity, unspecified; Z90.3 Acquired absence of stomach [part of]; Z98.84 Bariatric surgery status
CPT/HCPCS: 36415; 80053; 80061; 82306; 82607; 82728; 82746; 83036; 83540; 83721; 83970; 84425; 84466; 85025